=== PATIENT | female | born 1930 | race Caucasian/White ===

== ENCOUNTER → 2017-02-08 | Outpatient (CLI) | payer MEDICARE, OTHER ==
[2017-02-08 10:01] LABS: CHLORIDE,CL 106 mmol/L (98-110); SODIUM,NA 140 mmol/L (136-146)
== END ==
LOC: MW.CHIM 09:20
PROVIDERS: ATTEND Internal Medicine
DX: D64.9 Anemia, unspecified (principal); I10 Essential (primary) hypertension
CPT/HCPCS: 36415; 80053; 80061; 83540; 84439; 84443; 85025

== ENCOUNTER → 2017-02-14 | Outpatient (CLI) | payer MEDICARE, OTHER | LOC: MW.CHIM 08:00 | PROVIDERS: ATTEND Internal Medicine | DX: I10 Essential (primary) hypertension (principal); M19.049 Primary osteoarthritis, unspecified hand; I83.93 Asymptomatic varicose veins of bilateral lower extremities; I87.2 Venous insufficiency (chronic) (peripheral) | CPT/HCPCS: 99214 ==

== ENCOUNTER 2018-06-22 16:09 | Observation (INO) | payer MEDICARE, OTHER ==
--- NOTE | 2018-06-22 16:17 | EDM.PDOC ---
ED HPI GENERAL MEDICAL PROBLEM - General Chief Complaint: Lower Extremity Injury/Pain Stated Complaint: PT RT SIDE NUMB Time Seen by Provider: 06/22/18 16:13 - History of Present Illness INITIAL COMMENTS - FREE TEXT/NARRATIVE: HISTORY AND PHYSICAL: History of present illness: Patient is 88-year-old white female who presents with a concern of numbness and weakness to her right lower extremity this is primarily relegated to her foot and started approximately one half hour prior to arrival she denies any other numbness weakness or other concern she denies chest pain shortness of breath fever chills nausea or vomiting. Review of systems: As per history of present illness and below otherwise all systems reviewed and negative. Past medical history: As per history of present illness and as reviewed below otherwise noncontributory. Surgical history: As per history of present illness and as reviewed below otherwise noncontributory. Social history: No reported history of drug or alcohol abuse. Family history: As per history of present illness and as reviewed below otherwise noncontributory. Physical exam: HEENT: Atraumatic, normocephalic, pupils reactive, negative for conjunctival pallor or scleral icterus, mucous membranes moist, throat clear, neck supple, nontender, trachea midline. Lungs: Clear to auscultation, breath sounds equal bilaterally, chest nontender. Heart: S1S2, regular, negative for clicks, rubs, or JVD. Abdomen: Soft, nondistended, nontender. Negative for masses or hepatosplenomegaly. Negative for costovertebral tenderness. Pelvis: Stable nontender. Genitourinary: Deferred. Rectal: Deferred. Extremities: Atraumatic, negative for cords or calf pain. Neurovascular unremarkable. Edema noted left lower extremity Neuro: Awake, alert, oriented. Cranial nerves II through XII unremarkable. Cerebellum unremarkable. Motor and sensory unremarkable throughout. Exam nonfocal. Diagnostics: CBC CMP troponin PT/INR chest x-ray EKG CT brain Therapeutics: IV O2 monitor Impression: #1 paresis/paresthesia right lower extremity improved Definitive disposition and diagnosis as appropriate pending reevaluation and review of above. - Related Data Allergies Allergy/AdvReac Type Severity Reaction Status Date / Time brimonidine tartrate Allergy Cannot Verified 06/22/18 16:54 [From Alphagan P] Remember ciprofloxacin Allergy Cannot Verified 06/22/18 16:56 Remember Home Meds: Home Meds Aspirin [Children's Aspirin] 81 mg PO DAILY 02/04/15 [History] Doxazosin [Cardura] 2 mg PO DAILY 02/04/15 [History] HCTZ/Triamterene [Maxzide 25-37.5 MG] 37.5 mg PO DAILY 02/04/15 [History] Latanoprost [Xalatan] 2.5 ml EYEBOTH DAILY 02/04/15 [History] Vit A/Vit C/Vit E/Zinc/Copper [Preservision] 2 each PO DAILY 02/04/15 [History] Review of Systems - Review of Systems Review Of Systems: ROS reveals no pertinent complaints other than HPI. ED EXAM, GENERAL - Physical Exam Exam: See Below (See dictation) Course - Vital Signs Last Recorded V/S: Last Vital Signs Temp 36.2 C 06/22/18 16:10 Pulse 78 06/22/18 16:10 Resp 16 06/22/18 16:10 BP 113/80 06/22/18 16:10 Pulse Ox 97 06/22/18 16:10 - Orders/Labs/Meds Orders: Active Orders 24 hr Category Date Time Status EKG 12 Lead [EKG Documentation Completion] [RC] STAT Care 06/22/18 16:18 Active Chest 1V Frontal [CR] Stat Exams 06/22/18 16:17 Taken Head wo Cont [CT] Stat Exams 06/22/18 16:17 Taken URINALYSIS W/MICROSCOPIC [UA W/MICROSCOPIC] [URIN] Stat Lab 06/22/18 16:17 Ordered Labs: Laboratory Tests 06/22/18 06/22/18 Range/Units 17:00 17:00 WBC 8.18 (4.0-11.0) K/uL RBC 4.38 (4.30-5.90) M/uL Hgb 13.1 (12.0-16.0) g/dL Hct 38.9 (36.0-46.0) % MCV 88.8 (80.0-98.0) fL MCH 29.9 (27.0-32.0) pg MCHC 33.7 (31.0-37.0) g/dL RDW Std Deviation 42.4 (28.0-62.0) fl RDW Coeff of Anne 13 (11.0-15.0) % Plt Count 239 (150-400) K/uL MPV 9.20 (7.40-12.00) fL Neut % (Auto) 58.9 (48.0-80.0) % Lymph % (Auto) 29.0 (16.0-40.0) % [place] % (Auto) 9.9 (0.0-15.0) % Eos % (Auto) 2.0 (0.0-7.0) % Baso % (Auto) 0.2 (0.0-1.5) % Neut # (Auto) 4.8 (1.4-5.7) K/uL Lymph # (Auto) 2.4 (0.6-2.4) K/uL Bent # (Auto) 0.8 (0.0-0.8) K/uL Eos # (Auto) 0.2 (0.0-0.7) K/uL Baso # (Auto) 0.0 (0.0-0.1) K/uL Nucleated RBC % 0.0 /100WBC Nucleated RBCs # 0 K/uL Sodium 139 (136-145) mmol/L Potassium 3.6 (3.5-5.1) mmol/L Chloride 105 (98-107) mmol/L Carbon Dioxide 27.6 (21.0-32.0) mmol/L BUN 9 (7.0-18.0) mg/dL Creatinine 0.6 (0.6-1.0) mg/dL Est Cr Clr Drug Dosing 57.04 mL/min Estimated GFR (MDRD) > 60.0 ml/min Glucose 132 H (74-106) mg/dL Calcium 9.5 (8.5-10.1) mg/dL Total Bilirubin 1.1 H (0.2-1.0) mg/dL AST 13 L (15-37) IU/L ALT 14 (14-63) IU/L Alkaline Phosphatase 64 (46-116) U/L CK-MB (CK-2) 1.2 (0-3.6) ng/mL Troponin I < 0.050 (0.000-0.056) ng/mL Total Protein 7.2 (6.4-8.2) g/dL Albumin 3.4 (3.4-5.0) g/dL Globulin 3.8 H (2.0-3.5) g/dL Albumin/Globulin Ratio 0.9 L (1.3-2.8) Departure - Departure Time of Disposition: 17:49 Disposition: Refer to Observation Condition: Good Clinical Impression: Paresthesia, Paresis - Discharge Information Forms: ED Department Discharge - My Orders Last 24 Hours: My Active Orders 06/22/18 16:17 Chest 1V Frontal [CR] Stat Head wo Cont [CT] Stat URINALYSIS W/MICROSCOPIC [UA W/MICROSCOPIC] [URIN] Stat 06/22/18 16:18 EKG 12 Lead [EKG Documentation Completion] [RC] STAT - Assessment/Plan Last 24 Hours: My Active Orders 06/22/18 16:17 Chest 1V Frontal [CR] Stat Head wo Cont [CT] Stat URINALYSIS W/MICROSCOPIC [UA W/MICROSCOPIC] [URIN] Stat 06/22/18 16:18 EKG 12 Lead [EKG Documentation Completion] [RC] STAT
[2018-06-22 17:48] LABS: CHLORIDE,CL 105 mmol/L (98-107); SODIUM,NA 139 mmol/L (136-145)
[2018-06-22] MEDS ORDERED: Acetaminophen 325 MG Tab PO PRN (23:35)
--- NOTE | 2018-06-22 23:37 | PCM.HP ---
H&P History of Present Illness - General Date of Service: 06/23/18 Admit Problem/Dx: Admission Diagnosis/Problem Admission Diagnosis/Problem Paresthesia - History of Present Illness Initial Comments - Free Text/Narative: 88 yo female with pmh of hypertension who presents with right foot weakness and numbness. Patient reported leg felt wobble for a few hours. Her symptoms resolved on admission. She was seen in the ED three years ago with similar symptoms and was discharged home as it was felt like it was unlikely a stroke. Bilateral Leg Pain Score (Numeric/FACES): 2 - Related Data Allergies/Adverse Reactions: Allergies Allergy/AdvReac Type Severity Reaction Status Date / Time brimonidine tartrate Allergy Cannot Verified 06/22/18 16:54 [From Alphagan P] Remember ciprofloxacin Allergy Cannot Verified 06/22/18 16:56 Remember Home Medications: Home Meds Aspirin [Children's Aspirin] 81 mg PO DAILY 02/04/15 [History] Doxazosin [Cardura] 2 mg PO DAILY 02/04/15 [History] HCTZ/Triamterene [Maxzide 25-37.5 MG] 37.5 mg PO DAILY 02/04/15 [History] Latanoprost [Xalatan 0.005% Ophth Soln] 2.5 ml EYEBOTH DAILY 02/04/15 [History] Vit A/Vit C/Vit E/Zinc/Copper [Preservision] 2 each PO DAILY 02/04/15 [History] amLODIPine Besylate [Amlodipine Besylate] 5 mg PO BEDTIME 06/22/18 [History] Past Medical History HEENT History: Reports: Glaucoma, Macular Degeneration Cardiovascular History: Reports: Hypertension Dermatologic History: Reports: Benign Melanoma - Infectious Disease History Infectious Disease History: Reports: None - Past Surgical History GI Surgical History: Reports: Cholecystectomy Social & Family History - Family History Family Medical History: Noncontributory - Tobacco Use Smoking Status *Q: Never Smoker - Caffeine Use Caffeine Use: Reports: Coffee - Recreational Drug Use Recreational Drug Use: No H&P Review of Systems - Review of Systems: Review Of Systems: ROS reveals no pertinent complaints other than HPI. Exam - Exam Exam: See Below - Vital Signs Vital Signs: Last Vital Signs Temp 36.8 C 06/22/18 20:00 Pulse 83 06/22/18 20:00 Resp 18 06/22/18 20:00 BP 151/86 H 06/22/18 20:00 Pulse Ox 96 06/22/18 20:00 Weight: 65.856 kg - Exam General: Alert, Oriented HEENT: Mucosa Moist & Amonate Neck: Supple, Trachea Midline Lungs: Clear to Auscultation, Normal Respiratory Effort Cardiovascular: Regular Rate, Regular Rhythm GI/Abdominal Exam: Normal Bowel Sounds, Soft, Non-Tender Extremities: Non-Tender, No Pedal Edema Skin: Warm, Dry, Intact Neurological: Cranial Nerves Intact, Reflexes Equal Bilateral, Strength Equal Bilateral, Normal Gait, Normal Speech, Normal Tone, Sensation Intact. No: Focal Deficit Psychiatric: Alert, Normal Affect, Normal Mood - Patient Data Lab Results Last 24 hrs: Laboratory Results - last 24 hr 06/22/18 06/22/18 Range/Units 17:00 17:00 WBC 8.18 (4.0-11.0) K/uL RBC 4.38 (4.30-5.90) M/uL Hgb 13.1 (12.0-16.0) g/dL Hct 38.9 (36.0-46.0) % MCV 88.8 (80.0-98.0) fL MCH 29.9 (27.0-32.0) pg MCHC 33.7 (31.0-37.0) g/dL RDW Std Deviation 42.4 (28.0-62.0) fl RDW Coeff of Anne 13 (11.0-15.0) % Plt Count 239 (150-400) K/uL MPV 9.20 (7.40-12.00) fL Neut % (Auto) 58.9 (48.0-80.0) % Lymph % (Auto) 29.0 (16.0-40.0) % [place] % (Auto) 9.9 (0.0-15.0) % Eos % (Auto) 2.0 (0.0-7.0) % Baso % (Auto) 0.2 (0.0-1.5) % Neut # (Auto) 4.8 (1.4-5.7) K/uL Lymph # (Auto) 2.4 (0.6-2.4) K/uL [place] # (Auto) 0.8 (0.0-0.8) K/uL Eos # (Auto) 0.2 (0.0-0.7) K/uL Baso # (Auto) 0.0 (0.0-0.1) K/uL Nucleated RBC % 0.0 /100WBC Nucleated RBCs # 0 K/uL Sodium 139 (136-145) mmol/L Potassium 3.6 (3.5-5.1) mmol/L Chloride 105 (98-107) mmol/L Carbon Dioxide 27.6 (21.0-32.0) mmol/L BUN 9 (7.0-18.0) mg/dL Creatinine 0.6 (0.6-1.0) mg/dL Est Cr Clr Drug Dosing 57.04 mL/min Estimated GFR (MDRD) > 60.0 ml/min Glucose 132 H (74-106) mg/dL Calcium 9.5 (8.5-10.1) mg/dL Total Bilirubin 1.1 H (0.2-1.0) mg/dL AST 13 L (15-37) IU/L ALT 14 (14-63) IU/L Alkaline Phosphatase 64 (46-116) U/L CK-MB (CK-2) 1.2 (0-3.6) ng/mL Troponin I < 0.050 (0.000-0.056) ng/mL Total Protein 7.2 (6.4-8.2) g/dL Albumin 3.4 (3.4-5.0) g/dL Globulin 3.8 H (2.0-3.5) g/dL Albumin/Globulin Ratio 0.9 L (1.3-2.8) Result Diagrams: 06/22/18 17:00 06/22/18 17:00 Problem List Initiated/Reviewed/Updated: Yes Orders Last 24hrs: Active Orders 24 hr Category Date Time Status Patient Status [ADT] Stat ADT 06/22/18 17:51 Active Oxygen Therapy [RC] PRN Care 06/22/18 23:36 Active Telemetry Monitoring [Cardiac Monitoring] [RC] Q8H Care 06/22/18 18:25 Active Up ad Kylie [RC] ASDIRECTED Care 06/22/18 23:35 Active VTE/DVT Education [RC] PER UNIT ROUTINE Care 06/22/18 23:36 Active Vital Signs [RC] Q4H Care 06/22/18 23:36 Active Regular Diet [DIET] Diet 06/22/18 Dinner Active Chest 1V Frontal [CR] Stat Exams 06/22/18 16:17 Taken Head wo Cont [CT] Stat Exams 06/22/18 16:17 Taken CULTURE URINE [RM] Stat Lab 06/22/18 18:10 Ordered URINALYSIS W/MICROSCOPIC [UA W/MICROSCOPIC] [URIN] Stat Lab 06/22/18 16:17 Ordered Acetaminophen [Tylenol] Med 06/22/18 23:35 Ordered 650 mg PO Q4H PRN Sequential Compression Device [OM.PC] Per Unit Routine Oth 06/22/18 23:36 Ordered Resuscitation Status Routine Resus Stat 06/22/18 23:35 Ordered Medication Orders Acetaminophen (Tylenol) 650 mg PO Q4H PRN PRN Reason: Pain (Mild 1-3)/fever Assessment/Plan Comment:: 88 yo female admitted with paresthesias. She was monitored overnight with no events on telemetry. CT head showed no acute findings. I recommended MRI of brain but patient has refused. She will be discharged home with grand daughter. A referral to neurology clinic was made.
[2018-06-23 12:13] VITALS: BP 140/72
--- NOTE | 2018-06-24 11:31 | CT ---
EXAM DATE: 06/22/18 PATIENT'S AGE: 88 Patient: BUSHRA TREVIÑO Facility: [place], [place] Site . Site : 1930 Study: CT Head STROKE PROTOCOL wo cont [id number] 4:29:23 PM Ordering Physician: Himanshu Thomson Final Report: INDICATION: Stroke code. Right lower leg numbness with new onset. TECHNIQUE: CT head without IV contrast. COMPARISON: CT head 02/04/2015. FINDINGS: Moderate degenerative changes in the cervical spine on lateral circulating nurse view. No intracranial hemorrhage, edema or mass effect. Moderate vascular calcifications. Mild to moderate cerebral atrophy with slight progression since 2014. Minimal small vessel ischemic disease. Remainder negative. Report called to referring physician at 4:33 p.m. on 06/22/2018. IMPRESSION: No acute intracranial disease. Chronic intracranial findings as described above. Please note that all CT scans at this facility use dose modulation, iterative reconstruction, and/or weight-based dosing when appropriate to reduce radiation dose to as low as reasonably achievable. Dictated by Wade Mckeon MD @ Jun 22 2018 4:34PM (Electronic Signature) Report Signed by Proxy. SEE
--- NOTE | 2018-06-24 11:32 | CR ---
EXAM DATE: 06/22/18 PATIENT'S AGE: 88 Patient: BUSHRA TREVIÑO Facility: [place], [place] Site . Site : 1930 Study: XRay Chest [id number] 4:31:02 PM Ordering Physician: Himanshu Thomson Final Report: TECHNIQUE: Portable AP chest. INDICATION: Stroke, right lower leg numbness. FINDINGS: Lungs clear. Normal heart size and pulmonary vascularity given technique. No effusion. No pneumothorax. Bilateral shoulder arthroplasties. No significant change since 06/03/2018. IMPRESSION: No acute chest findings. Dictated by Liang Talley MD @ 06/22/2018 4:58:06 PM Dictated by: Liang Talley MD @ 06/22/2018 16:58:20 (Electronic Signature) Report Signed by Proxy. [facility]
== END 2018-06-23 11:10 | disposition home or self-care (01) ==
LOC: MW.ED 16:09 → MW.MS 18:20
PROVIDERS: ADMIT Internal Medicine; ATTEND Internal Medicine
DX: R20.2 Paresthesia of skin (principal); I10 Essential (primary) hypertension; Z79.82 Long term (current) use of aspirin; Z79.899 Other long term (current) drug therapy; Z88.1 Allergy status to other antibiotic agents; Z88.8 Allergy status to other drugs, medicaments and biological substances
CPT/HCPCS: 70450; 70450-26; 71045; 71045-26; 80053; 82553; 84484; 85025; 93005; 99285-25; G0378

== ENCOUNTER 2018-10-26 20:12 | Inpatient (IN) | payer MEDICARE, OTHER ==
[2018-10-26] MEDS ORDERED: Sodium Chloride 0.9% 500 ML IV SCH (20:30)
--- NOTE | 2018-10-26 20:53 | EDM.PDOC ---
ED HPI GENERAL MEDICAL PROBLEM - General Chief Complaint: Lower Extremity Injury/Pain Stated Complaint: PT HAS CONFUSION Time Seen by Provider: 10/26/18 20:50 Source of Information: Reports: Patient - History of Present Illness INITIAL COMMENTS - FREE TEXT/NARRATIVE: HISTORY AND PHYSICAL: History of present illness: Patient presents with weakness and confusion noted over the last few days, her daughter has not seen her in approximately 6 weeks at which time she was doing quite well, her daughter arrived from town noted her mother was week helping her around her assisted living home fall complains of left ankle pain with ambulation but is ambulating with assistance. daughter notes that mom is somewhat confused as of late She is alert and answers questions appropriately at this time no fever nausea vomiting chills sweats no chest pain shortness breath headache dizziness palpitation no bowel or urine symptoms no head injury or loss of consciousness associated with fall 5 days polina .or. History of recent DVT on 0 to Review of systems: As per history of present illness and below otherwise all systems reviewed and negative. Past medical history: As per history of present illness and as reviewed below otherwise noncontributory. Surgical history: As per history of present illness and as reviewed below otherwise noncontributory. Social history: No reported history of drug or alcohol abuse. Family history: As per history of present illness and as reviewed below otherwise noncontributory. Physical exam: HEENT: Atraumatic, normocephalic, pupils reactive, conjunctival pallor noted no scleral icterus, mucous membranes moist, throat clear, neck supple, nontender, trachea midline. Lungs: Clear to auscultation, breath sounds equal bilaterally, chest nontender. Heart: S1S2, regular, negative for clicks, rubs, or JVD. Abdomen: Soft, nondistended, nontender. Negative for masses or hepatosplenomegaly. Negative for costovertebral tenderness. Pelvis: Stable nontender. Genitourinary: Deferred. Rectal: Deferred. Extremities: Atraumatic, negative for cords or calf pain. Neurovascular unremarkable. Neuro: Awake, alert, oriented. Cranial nerves II through XII unremarkable. Cerebellum unremarkable. Motor and sensory unremarkable throughout. Exam nonfocal. Diagnostics: [] CBC CMP UA troponin CPK type and screen and crossmatch 2 units EKG Chest [address] no contrast Left ankle complete Therapeutics: [] normal saline 500 mL bolus packed red blood cells 2 units Impression: [] symptomatically anemia hyperglycemia-onset diabetes generalized weakness and confusion likely secondary to above Chronic history of baseline Definitive disposition and diagnosis as appropriate pending reevaluation and review of above. Left Lower Leg Pain Score (Numeric/FACES): 2 - Related Data Allergies Allergy/AdvReac Type Severity Reaction Status Date / Time brimonidine tartrate Allergy Cannot Verified 10/26/18 20:19 [From Alphagan P] Remember ciprofloxacin Allergy Cannot Verified 10/26/18 20:19 Remember Home Meds: Home Meds HCTZ/Triamterene [Maxzide 25-37.5 MG] 0.5 tab PO ASDIRECTED 02/04/15 [History] Latanoprost [Xalatan 0.005% Ophth Soln] 1 drop EYEBOTH DAILY 02/04/15 [History] Triamcinolone Acetonide [Triamcinolone Acetonide 0.025%] 1 applic TOP BID PRN [History] Rivaroxaban [Xarelto] 20 mg PO DAILY 08/14/18 [History] Potassium Chloride 10 meq PO BID #30 capsule.er 09/03/18 [Rx] Nitrofurantoin Monohyd/M-Cryst [Macrobid 100 mg Capsule] 100 mg PO BID 10 Days # 20 capsule 09/14/18 [Rx] Potassium Chloride [Klor-Con 10] 10 meq PO BID #30 tablet.er 09/14/18 [Rx] amLODIPine Besylate [Amlodipine Besylate] 5 mg PO DAILY 09/14/18 [History] Past Medical History HEENT History: Reports: Glaucoma, Macular Degeneration Cardiovascular History: Reports: Blood Clots/VTE/DVT, Hypertension Gastrointestinal History: Reports: None Genitourinary History: Reports: None DATA MIGRATION LEAD History: Reports: Musculoskeletal History: Reports: None Psychiatric History: Reports: Anxiety Hematologic History: Reports: Other (See Below) Other Hematologic History: DVT Dermatologic History: Reports: Benign Melanoma - Infectious Disease History Infectious Disease History: Reports: Chicken Pox - Past Surgical History GI Surgical History: Reports: Cholecystectomy Female Surgical History: Reports: Hysterectomy Musculoskeletal Surgical History: Reports: Other (See Below) Other Musculoskeletal Surgeries/Procedures:: bilateral shoulder Social & Family History - Family History Family Medical History: Noncontributory - Tobacco Use Smoking Status *Q: Never Smoker - Caffeine Use Caffeine Use: Reports: Coffee - Recreational Drug Use Recreational Drug Use: No Review of Systems - Review of Systems Review Of Systems: See Below ED EXAM, GENERAL - Physical Exam Exam: See Below Course - Vital Signs Last Recorded V/S: Last Vital Signs Temp 98.6 F 10/26/18 20:15 Pulse 94 10/26/18 21:05 Resp 18 10/26/18 21:05 BP 119/52 L 10/26/18 21:05 Pulse Ox 94 L 10/26/18 21:05 - Orders/Labs/Meds Orders: Active Orders 24 hr Category Date Time Status EKG Documentation Completion [RC] STAT Care 10/26/18 20:15 Active Ankle Min 3V Lt [CR] Stat Exams 10/26/18 20:28 Taken Chest 1V Frontal [CR] Stat Exams 10/26/18 20:15 Taken Head wo Cont [CT] Stat Exams 10/26/18 20:15 Taken PACKED CELLS [RED BLOOD CELLS LP] [BBK] Stat Lab 10/26/18 20:24 Received TYPE AND SCREEN [BBK] Stat Lab 10/26/18 20:24 Received UA RFX DIAN AND CULT IF INDIC [URIN] Stat Lab 10/26/18 20:15 Ordered Sodium Chloride 0.9% [Normal Saline] 500 ml Med 10/26/18 20:30 Active IV STAT Medication Orders Sodium Chloride (Normal Saline) 500 mls @ 999 mls/hr IV STAT CORA Last Admin: 10/26/18 21:02 Dose: 999 mls/hr Labs: Laboratory Tests 10/26/18 10/26/18 10/26/18 Range/Units 20:24 20:24 20:24 WBC 14.25 H (4.0-11.0) K/uL RBC 2.91 L (4.30-5.90) M/uL Hgb 7.3 L (12.0-16.0) g/dL Hct 23.6 L (36.0-46.0) % MCV 81.1 (80.0-98.0) fL MCH 25.1 L (27.0-32.0) pg MCHC 30.9 L (31.0-37.0) g/dL RDW Std Deviation 47.5 (28.0-62.0) fl RDW Coeff of Anne 16 H (11.0-15.0) % Plt Count 208 (150-400) K/uL MPV 8.70 (7.40-12.00) fL Add Manual Diff YES Neutrophils % (Manual) 81 H (48.0-80.0) % Band Neutrophils % 3 % Lymphocytes % (Manual) 9 L (16.0-40.0) % Monocytes % (Manual) 5 (0.0-15.0) % Eosinophils % (Manual) 1 (0.0-7.0) % Basophils % (Manual) 1 (0.0-1.5) % Nucleated RBC % 0.0 /100WBC Absolute Seg Neuts 11.5 H (1.4-5.7) Band Neutrophils # 0.4 Lymphocytes # (Manual) 1.3 (0.6-2.4) Monocytes # (Manual) 0.7 (0.0-0.8) Eosinophils # (Manual) 0.1 (0.0-0.7) Basophils # (Manual) 0.1 (0.0-0.1) Nucleated RBCs # 0 K/uL INR 1.60 Sodium 130 L (136-145) mmol/L Potassium 3.9 (3.5-5.1) mmol/L Chloride 97 L (98-107) mmol/L Carbon Dioxide 24.0 (21.0-32.0) mmol/L BUN 16 (7.0-18.0) mg/dL Creatinine 0.7 (0.6-1.0) mg/dL Est Cr Clr Drug Dosing TNP Estimated GFR (MDRD) > 60.0 ml/min Glucose 351 H (74-106) mg/dL Calcium 8.3 L (8.5-10.1) mg/dL Total Bilirubin 0.9 (0.2-1.0) mg/dL AST 31 (15-37) IU/L ALT 31 (14-63) IU/L Alkaline Phosphatase 84 (46-116) U/L Troponin I < 0.050 (0.000-0.056) ng/mL Total Protein 6.0 L (6.4-8.2) g/dL Albumin 1.8 L (3.4-5.0) g/dL Globulin 4.2 H (2.6-4.0) g/dL Albumin/Globulin Ratio 0.4 L (0.9-1.6) Meds: Medications Generic Name Dose Route Start Last Admin Trade Name Kathi PRN Reason Stop Dose Admin Sodium Chloride 500 mls @ 999 mls/hr 10/26/18 20:30 10/26/18 21:02 Normal Saline IV 999 mls/hr STAT CORA Administration Departure - Departure Time of Disposition: 21:21 Disposition: Refer to Observation Condition: Poor Clinical Impression: Symptomatic anemia, New onset type 2 diabetes mellitus, Hyperglycemia - Discharge Information Referrals: PCP,None [Primary Care Provider] - Forms: ED Department Discharge - My Orders Last 24 Hours: My Active Orders 10/26/18 20:15 EKG Documentation Completion [RC] STAT Chest 1V Frontal [CR] Stat Head wo Cont [CT] Stat UA RFX DIAN AND CULT IF INDIC [URIN] Stat 10/26/18 20:24 PACKED CELLS [RED BLOOD CELLS LP] [BBK] Stat TYPE AND SCREEN [BBK] Stat 10/26/18 20:28 Ankle Min 3V Lt [CR] Stat 10/26/18 20:30 Sodium Chloride 0.9% [Normal Saline] 500 ml IV STAT - Assessment/Plan Last 24 Hours: My Active Orders 10/26/18 20:15 EKG Documentation Completion [RC] STAT Chest 1V Frontal [CR] Stat Head wo Cont [CT] Stat UA RFX DIAN AND CULT IF INDIC [URIN] Stat 10/26/18 20:24 PACKED CELLS [RED BLOOD CELLS LP] [BBK] Stat TYPE AND SCREEN [BBK] Stat 10/26/18 20:28 Ankle Min 3V Lt [CR] Stat 10/26/18 20:30 Sodium Chloride 0.9% [Normal Saline] 500 ml IV STAT
[2018-10-26 20:57] LABS: CHLORIDE,CL 97 mmol/L (98-107); SODIUM,NA 130 mmol/L (136-145)
[2018-10-26] MEDS: Acetaminophen 325 MG Tab PO PRN (23:00)
[2018-10-26] MEDS: Temazepam 15 MG Cap PO PRN (23:00)
[2018-10-27 06:37] LABS: CHLORIDE,CL 102 mmol/L (98-107); SODIUM,NA 135 mmol/L (136-145)
--- NOTE | 2018-10-27 07:46 | PCM.HP ---
H&P History of Present Illness - General Date of Service: 10/27/18 Admit Problem/Dx: Admission Diagnosis/Problem Admission Diagnosis/Problem Anemia Source of Information: Patient, Family History Limitations: Reports: No Limitations - History of Present Illness Initial Comments - Free Text/Narative: The patient is an 88-year-old lady who had been admitted secondary to increasing confusion, falls and generalized weakness. The patient's daughter is with her. The patient's daughter says that the patient is scheduled to go to an assisted living center later this week. The patient says that she has been coming increasingly weak and fatigued and she has severe pain in her left foot and calf. The patient was recently started on Xarelto for blood clots in her left lower extremity. Patient has denied any trauma. The patient has denied any fever or chills. She's had no shortness of breath. She has been living at home and has been unable to meet her activities of daily living. Onset of Symptoms: Reports: Gradual Duration of Symptoms: Reports: Day(s):, Getting Worse Location: Reports: Generalized Improves with: Reports: Rest Worsens with: Reports: Movement Associated Symptoms: Reports: No Other Symptoms Left Lower Leg Pain Score (Numeric/FACES): 2 - Related Data Allergies/Adverse Reactions: Allergies Allergy/AdvReac Type Severity Reaction Status Date / Time brimonidine tartrate Allergy Cannot Verified 10/26/18 20:19 [From Alphagan P] Remember ciprofloxacin Allergy Cannot Verified 10/26/18 20:19 Remember Home Medications: Home Meds Latanoprost [Xalatan 0.005% Ophth Soln] 1 drop EYEBOTH BEDTIME 02/04/15 [History ] Rivaroxaban [Xarelto] 20 mg PO DAILY 08/14/18 [History] amLODIPine Besylate [Amlodipine Besylate] 5 mg PO BEDTIME 09/14/18 [History] Dorzolamide HCl 1 drop EYELF DAILY 10/26/18 [History] Doxazosin Mesylate [Cardura] 1 mg PO DAILY 10/26/18 [History] Potassium Chloride [Klor-Con 10] 10 meq PO DAILY 10/26/18 [History] Spironolactone [Aldactone] 25 mg PO DAILY 10/26/18 [History] Past Medical History HEENT History: Reports: Glaucoma, Macular Degeneration Cardiovascular History: Reports: Blood Clots/VTE/DVT, Hypertension Respiratory History: Reports: None Gastrointestinal History: Reports: None Genitourinary History: Reports: None SERVICE PLANNER History: Reports: Musculoskeletal History: Reports: None Neurological History: Reports: None Psychiatric History: Reports: Anxiety Endocrine/Metabolic History: Reports: None Hematologic History: Reports: Other (See Below) Other Hematologic History: DVT Immunologic History: Reports: None Oncologic (Cancer) History: Reports: None Dermatologic History: Reports: Benign Melanoma - Infectious Disease History Infectious Disease History: Reports: Chicken Pox - Past Surgical History GI Surgical History: Reports: Cholecystectomy Female Surgical History: Reports: Hysterectomy Musculoskeletal Surgical History: Reports: Other (See Below) Other Musculoskeletal Surgeries/Procedures:: bilateral shoulder Social & Family History - Family History Family Medical History: Noncontributory - Tobacco Use Smoking Status *Q: Never Smoker Second Hand Smoke Exposure: No - Caffeine Use Caffeine Use: Reports: Coffee - Recreational Drug Use Recreational Drug Use: No - Living Situation & Occupation Living situation: Reports: , with Family Occupation: Retired H&P Review of Systems - Review of Systems: Review Of Systems: See Below General: Reports: Weakness, Fatigue HEENT: Reports: No Symptoms Pulmonary: Reports: Shortness of Breath Cardiovascular: Reports: No Symptoms Gastrointestinal: Reports: No Symptoms Genitourinary: Reports: No Symptoms Musculoskeletal: Reports: Back Pain, Leg Pain, Foot Pain Skin: Reports: No Symptoms Psychiatric: Reports: No Symptoms Neurological: Reports: No Symptoms Hematologic/Lymphatic: Reports: Anemia Immunologic: Reports: No Symptoms Exam - Exam Exam: See Below - Vital Signs Vital Signs: Last Vital Signs Temp 36.3 C 10/27/18 03:47 Pulse 86 10/27/18 03:47 Resp 14 10/27/18 03:47 BP 121/59 L 10/27/18 03:47 Pulse Ox 90 L 10/27/18 00:23 Weight: 59.285 kg - Exam Quality Assessment: No: Supplemental Oxygen General: Alert (Frail, elderly female), Oriented, Cooperative HEENT: Conjunctiva Clear, EACs Clear, EOMI, PERRLA. No: Mucosa Moist & [place] ( dry. eating) Neck: Supple, Trachea Midline Lungs: Normal Respiratory Effort, Crackles Cardiovascular: Regular Rate, Regular Rhythm GI/Abdominal Exam: Normal Bowel Sounds, Soft, Non-Tender, No Distention (Female) Exam: Deferred Rectal (Female) Exam: Deferred Back Exam: No: Normal Inspection (Kyphosis), Full Range of Motion (Age-related restrictions) Extremities: Pedal Edema (Predominantly left side), Leg Pain (Left leg examined. No ulcer. No redness. No swelling.) Skin: Warm, Dry, Intact Neurological: Cranial Nerves Intact Neuro Extensive - Mental Status: Alert, Oriented x3 Psychiatric: Alert, Normal Affect, Normal Mood - Patient Data Lab Results Last 24 hrs: Laboratory Results - last 24 hr 10/26/18 10/26/18 10/26/18 Range/Units 20:24 20:24 20:24 WBC 14.25 H (4.0-11.0) K/uL RBC 2.91 L (4.30-5.90) M/uL Hgb 7.3 L (12.0-16.0) g/dL Hct 23.6 L (36.0-46.0) % MCV 81.1 (80.0-98.0) fL MCH 25.1 L (27.0-32.0) pg MCHC 30.9 L (31.0-37.0) g/dL RDW Std Deviation 47.5 (28.0-62.0) fl RDW Coeff of Anne 16 H (11.0-15.0) % Plt Count 208 (150-400) K/uL MPV 8.70 (7.40-12.00) fL Add Manual Diff YES Neutrophils % (Manual) 81 H (48.0-80.0) % Band Neutrophils % 3 % Lymphocytes % (Manual) 9 L (16.0-40.0) % Monocytes % (Manual) 5 (0.0-15.0) % Eosinophils % (Manual) 1 (0.0-7.0) % Basophils % (Manual) 1 (0.0-1.5) % Nucleated RBC % 0.0 /100WBC Absolute Seg Neuts 11.5 H (1.4-5.7) Band Neutrophils # 0.4 Lymphocytes # (Manual) 1.3 (0.6-2.4) Monocytes # (Manual) 0.7 (0.0-0.8) Eosinophils # (Manual) 0.1 (0.0-0.7) Basophils # (Manual) 0.1 (0.0-0.1) Nucleated RBCs # 0 K/uL INR 1.60 Sodium 130 L (136-145) mmol/L Potassium 3.9 (3.5-5.1) mmol/L Chloride 97 L (98-107) mmol/L Carbon Dioxide 24.0 (21.0-32.0) mmol/L BUN 16 (7.0-18.0) mg/dL Creatinine 0.7 (0.6-1.0) mg/dL Est Cr Clr Drug Dosing TNP Estimated GFR (MDRD) > 60.0 ml/min Glucose 351 H (74-106) mg/dL Calcium 8.3 L (8.5-10.1) mg/dL Phosphorus (2.6-4.7) mg/dL Magnesium (1.8-2.4) mg/dL Total Bilirubin 0.9 (0.2-1.0) mg/dL AST 31 (15-37) IU/L ALT 31 (14-63) IU/L Alkaline Phosphatase 84 (46-116) U/L Troponin I < 0.050 (0.000-0.056) ng/mL Total Protein 6.0 L (6.4-8.2) g/dL Albumin 1.8 L (3.4-5.0) g/dL Globulin 4.2 H (2.6-4.0) g/dL Albumin/Globulin Ratio 0.4 L (0.9-1.6) Urine Color Urine Appearance Urine pH (5.0-8.0) Ur Specific [place] (1.001-1.035) Urine Protein (NEGATIVE) mg/dL Urine Glucose (UA) (NEGATIVE) mg/dL Urine Ketones (NEGATIVE) mg/dL Urine Occult Blood (NEGATIVE) Urine Nitrite (NEGATIVE) Urine Bilirubin (NEGATIVE) Urine Urobilinogen (<2.0) EU/dL Ur Leukocyte Esterase (NEGATIVE) Urine RBC (0-2/HPF) Urine WBC (0-5/HPF) Ur Epithelial Cells (NONE-FEW) Urine Bacteria (NEGATIVE) Blood Type Antibody Screen Crossmatch 10/26/18 10/26/18 10/27/18 Range/Units 20:24 21:20 05:54 WBC 13.33 H (4.0-11.0) K/uL RBC 3.52 L (4.30-5.90) M/uL Hgb 9.3 L (12.0-16.0) g/dL Hct 28.7 L (36.0-46.0) % MCV 81.5 (80.0-98.0) fL MCH 26.4 L (27.0-32.0) pg MCHC 32.4 (31.0-37.0) g/dL RDW Std Deviation 45.7 (28.0-62.0) fl RDW Coeff of Anne 16 H (11.0-15.0) % Plt Count 219 (150-400) K/uL MPV 8.60 (7.40-12.00) fL Add Manual Diff YES Neutrophils % (Manual) 78 (48.0-80.0) % Band Neutrophils % % Lymphocytes % (Manual) 16 (16.0-40.0) % Monocytes % (Manual) 5 (0.0-15.0) % Eosinophils % (Manual) 1 (0.0-7.0) % Basophils % (Manual) (0.0-1.5) % Nucleated RBC % 0.0 /100WBC Absolute Seg Neuts 10.4 H (1.4-5.7) Band Neutrophils # Lymphocytes # (Manual) 2.1 (0.6-2.4) Monocytes # (Manual) 0.7 (0.0-0.8) Eosinophils # (Manual) 0.1 (0.0-0.7) Basophils # (Manual) (0.0-0.1) Nucleated RBCs # 0 K/uL INR Sodium (136-145) mmol/L Potassium (3.5-5.1) mmol/L Chloride (98-107) mmol/L Carbon Dioxide (21.0-32.0) mmol/L BUN (7.0-18.0) mg/dL Creatinine (0.6-1.0) mg/dL Est Cr Clr Drug Dosing Estimated GFR (MDRD) ml/min Glucose (74-106) mg/dL Calcium (8.5-10.1) mg/dL Phosphorus (2.6-4.7) mg/dL Magnesium (1.8-2.4) mg/dL Total Bilirubin (0.2-1.0) mg/dL AST (15-37) IU/L ALT (14-63) IU/L Alkaline Phosphatase (46-116) U/L Troponin I (0.000-0.056) ng/mL Total Protein (6.4-8.2) g/dL Albumin (3.4-5.0) g/dL Globulin (2.6-4.0) g/dL Albumin/Globulin Ratio (0.9-1.6) Urine Color YELLOW Urine Appearance SLT CLOUDY Urine pH 6.0 (5.0-8.0) Ur Specific [place] 1.020 (1.001-1.035) Urine Protein NEGATIVE (NEGATIVE) mg/dL Urine Glucose (UA) 250 H (NEGATIVE) mg/dL Urine Ketones NEGATIVE (NEGATIVE) mg/dL Urine Occult Blood MODERATE H (NEGATIVE) Urine Nitrite NEGATIVE (NEGATIVE) Urine Bilirubin NEGATIVE (NEGATIVE) Urine Urobilinogen 4.0 H (<2.0) EU/dL Ur Leukocyte Esterase SMALL H (NEGATIVE) Urine RBC 1-2 (0-2/HPF) Urine WBC 2-3 (0-5/HPF) Ur Epithelial Cells RARE (NONE-FEW) Urine Bacteria RARE (NEGATIVE) Blood Type A POSITIVE Antibody Screen NEGATIVE Crossmatch See Detail 10/27/18 Range/Units 05:54 WBC (4.0-11.0) K/uL RBC (4.30-5.90) M/uL Hgb (12.0-16.0) g/dL Hct (36.0-46.0) % MCV (80.0-98.0) fL MCH (27.0-32.0) pg MCHC (31.0-37.0) g/dL RDW Std Deviation (28.0-62.0) fl RDW Coeff of Anne (11.0-15.0) % Plt Count (150-400) K/uL MPV (7.40-12.00) fL Add Manual Diff Neutrophils % (Manual) (48.0-80.0) % Band Neutrophils % % Lymphocytes % (Manual) (16.0-40.0) % Monocytes % (Manual) (0.0-15.0) % Eosinophils % (Manual) (0.0-7.0) % Basophils % (Manual) (0.0-1.5) % Nucleated RBC % /100WBC Absolute Seg Neuts (1.4-5.7) Band Neutrophils # Lymphocytes # (Manual) (0.6-2.4) Monocytes # (Manual) (0.0-0.8) Eosinophils # (Manual) (0.0-0.7) Basophils # (Manual) (0.0-0.1) Nucleated RBCs # K/uL INR Sodium 135 L (136-145) mmol/L Potassium 3.9 (3.5-5.1) mmol/L Chloride 102 (98-107) mmol/L Carbon Dioxide 25.4 (21.0-32.0) mmol/L BUN 10 (7.0-18.0) mg/dL Creatinine 0.4 L (0.6-1.0) mg/dL Est Cr Clr Drug Dosing 89.16 Estimated GFR (MDRD) > 60.0 ml/min Glucose 196 H (74-106) mg/dL Calcium 8.4 L (8.5-10.1) mg/dL Phosphorus 2.8 (2.6-4.7) mg/dL Magnesium 1.8 (1.8-2.4) mg/dL Total Bilirubin (0.2-1.0) mg/dL AST (15-37) IU/L ALT (14-63) IU/L Alkaline Phosphatase (46-116) U/L Troponin I (0.000-0.056) ng/mL Total Protein (6.4-8.2) g/dL Albumin (3.4-5.0) g/dL Globulin (2.6-4.0) g/dL Albumin/Globulin Ratio (0.9-1.6) Urine Color Urine Appearance Urine pH (5.0-8.0) Ur Specific [place] (1.001-1.035) Urine Protein (NEGATIVE) mg/dL Urine Glucose (UA) (NEGATIVE) mg/dL Urine Ketones (NEGATIVE) mg/dL Urine Occult Blood (NEGATIVE) Urine Nitrite (NEGATIVE) Urine Bilirubin (NEGATIVE) Urine Urobilinogen (<2.0) EU/dL Ur Leukocyte Esterase (NEGATIVE) Urine RBC (0-2/HPF) Urine WBC (0-5/HPF) Ur Epithelial Cells (NONE-FEW) Urine Bacteria (NEGATIVE) Blood Type Antibody Screen Crossmatch Result Diagrams: 10/27/18 05:54 10/27/18 05:54 - Problem List (1) Physical deconditioning SNOMED Code(s): 32805786523384 ICD Code: R53.81 - OTHER MALAISE Status: Chronic Priority: High Current Visit: Yes (2) Hyperglycemia SNOMED Code(s): 50715246 ICD Code: R73.9 - HYPERGLYCEMIA, UNSPECIFIED Status: Chronic Priority: High Current Visit: Yes (3) New onset type 2 diabetes mellitus SNOMED Code(s): 09509136 ICD Code: E11.9 - TYPE 2 DIABETES MELLITUS WITHOUT COMPLICATIONS Status: Chronic Priority: High Current Visit: Yes (4) Symptomatic anemia SNOMED Code(s): 649682469 ICD Code: D64.9 - ANEMIA, UNSPECIFIED Status: Chronic Priority: High Current Visit: Yes (5) Fall SNOMED Code(s): 6778321, 322289981 ICD Code: W19.XXXA - UNSPECIFIED FALL, INITIAL ENCOUNTER Status: Acute Priority: High Current Visit: Yes Qualifiers: Encounter type: initial encounter Qualified Code(s): W19.XXXA - Unspecified fall, initial encounter Problem List Initiated/Reviewed/Updated: Yes Orders Last 24hrs: Active Orders 24 hr Category Date Time Status Admission Status [Patient Status] [ADT] Stat ADT 10/26/18 21:21 Active EKG Documentation Completion [RC] STAT Care 10/26/18 20:15 Active Verify Patient Consent Obtain [RC] ASDIRECTED Care 10/26/18 21:31 Active Heart Healthy Diet [DIET] Diet 10/27/18 Breakfast Active Ankle Min 3V Lt [CR] Stat Exams 10/26/18 20:28 Taken Chest 1V Frontal [CR] Stat Exams 10/26/18 20:15 Taken Head wo Cont [CT] Stat Exams 10/26/18 20:15 Taken CULTURE URINE [RM] Stat Lab 10/26/18 21:20 Received PACKED CELLS [RED BLOOD CELLS LP] [BBK] Stat Lab 10/26/18 20:24 Results TYPE AND SCREEN [BBK] Stat Lab 10/26/18 20:24 Results Acetaminophen [Tylenol] Med 10/26/18 22:46 Active 650 mg PO Q6H PRN Sodium Chloride 0.9% [Normal Saline] 500 ml Med 10/26/18 20:30 Active IV STAT Temazepam [Restoril] Med 10/26/18 22:48 Active 15 mg PO BEDTIME PRN oxyCODONE Med 10/26/18 22:48 Active 5 mg PO Q6H PRN Transfuse Red Blood Cells [COMM] Stat Oth 10/26/18 21:30 Ordered Medication Orders Acetaminophen (Tylenol) 650 mg PO Q6H PRN PRN Reason: Pain Last Admin: 10/26/18 23:00 Dose: 650 mg Sodium Chloride (Normal Saline) 500 mls @ 999 mls/hr IV STAT CORA Last Admin: 10/26/18 21:02 Dose: 999 mls/hr Oxycodone HCl (Oxycodone) 5 mg PO Q6H PRN PRN Reason: Pain Temazepam (Restoril) 15 mg PO BEDTIME PRN PRN Reason: Sleep Last Admin: 10/26/18 23:00 Dose: 15 mg Assessment/Plan Comment:: The patient is an 88-year-old lady who had presented primarily out of concern for falls, generalized fatigue and weakness. The patient is able to eat without difficulty. She is also pending placement at assisted living center. I have ordered PT OT to evaluate the patient for strengthening, ambulation and ADLs. The patient was also newly anemic and I believe this is secondary to her chronic illnesses. The patient also received 2 units packed red blood cells in the emergency department and her hemoglobin is currently 9.3 mg/dL. The patient will have her hemoglobin retested with laboratory testing in the morning and if she continues to drop hemoglobin consider transfusion. No evidence of bleeding as the patient has denied any melena and her stools have been normal. We'll continue the patient on her diet as tolerated for now. I've encouraged ambulation with assistance. The patient will be in a DO NOT INTUBATE/DO NOT RESUSCITATE category and her wishes will be honored. The patient will likely be appropriate for discharge in 1-2 days.
[2018-10-27] MEDS: Acetaminophen 325 MG Tab PO PRN ×3 (08:30→20:35)
[2018-10-27] MEDS: Spironolactone 25 MG Tab PO SCH (09:46)
[2018-10-27] MEDS: Potassium Chloride 10 MEQ Tab.ER PO SCH (09:46)
[2018-10-27] MEDS: Gabapentin 100 MG Cap PO SCH ×2 (09:46→20:37)
[2018-10-27] MEDS: Latanoprost 0.005% Ophth Soln 2.5 ML Bottle EYELF SCH (14:53)
[2018-10-27] MEDS: cefTRIAXone 1 GM in Sodium Chloride 0.9% 50 ML IV SCH (16:29)
[2018-10-27] MEDS: oxyCODONE 5 MG Tab PO PRN (16:42)
[2018-10-27] MEDS: Rivaroxaban 10 MG Tab PO SCH (18:03)
[2018-10-27] MEDS: Latanoprost 0.005% Ophth Soln 2.5 ML Bottle EYEBOTH SCH (20:31)
[2018-10-27] MEDS: amLODIPine 5 MG Tab PO SCH (20:37)
[2018-10-28] MEDS: Acetaminophen 325 MG Tab PO PRN ×3 (02:51→20:12)
[2018-10-28 07:28] LABS: CHLORIDE,CL 100 mmol/L (98-107); SODIUM,NA 134 mmol/L (136-145)
[2018-10-28] MEDS: oxyCODONE 5 MG Tab PO PRN ×2 (07:42→15:48)
[2018-10-28] MEDS: Gabapentin 100 MG Cap PO SCH ×2 (08:14→20:12)
[2018-10-28] MEDS: Spironolactone 25 MG Tab PO SCH (08:14)
[2018-10-28] MEDS: Potassium Chloride 10 MEQ Tab.ER PO SCH (08:14)
[2018-10-28] MEDS ORDERED: Sodium Chloride 0.9% 1,000 ML IV SCH (08:45)
--- NOTE | 2018-10-28 08:45 | PCM.PN ---
<Jagruti Farmer M - Last Filed: 10/28/18 09:24> - General Info Date of Service: 10/28/18 Admission Dx/Problem (Free Text): Admission Diagnosis/Problem Admission Diagnosis/Problem Anemia Subjective Update: Having pain to L leg today, about the same as usual. But she is moving more which increases the pain. No chest pain or SOB. Appetite is poor due to pain. Functional Status: Reports: Tolerating Diet, Ambulating, Urinating. Denies: Pain Controlled - Review of Systems General: Reports: Malaise. Denies: Fever, Weakness, Fatigue HEENT: Reports: No Symptoms. Denies: Headaches, Sore Throat, Visual Changes Pulmonary: Denies: Shortness of Breath, Cough, Sputum Cardiovascular: Reports: Edema (L leg). Denies: Chest Pain, Dyspnea on Exertion Gastrointestinal: Reports: Decreased Appetite (due to pain). Denies: Abdominal Pain, Nausea, Vomiting Musculoskeletal: Reports: Leg Pain (left, burning shooting pain from fot up entire leg) Skin: Reports: No Symptoms Neurological: Reports: No Symptoms Psychiatric: Reports: No Symptoms - Patient Data Vitals - Most Recent: Last Vital Signs Temp 97.5 F 10/28/18 07:36 Pulse 105 H 10/28/18 07:36 Resp 18 10/28/18 07:36 BP 135/50 L 10/28/18 07:36 Pulse Ox 93 L 10/28/18 07:36 Weight - Most Recent: 59.285 kg I&O - Last 24 Hours: Intake & Output 10/27/18 10/28/18 10/28/18 22:59 06:59 14:59 Intake Total 1130 720 Output Total 1600 400 Balance -470 320 Lab Results Last 24 Hours: Laboratory Results - last 24 hr 10/28/18 10/28/18 Range/Units 06:42 06:42 WBC 14.92 H (4.0-11.0) K/uL RBC 3.60 L (4.30-5.90) M/uL Hgb 9.3 L (12.0-16.0) g/dL Hct 29.3 L (36.0-46.0) % MCV 81.4 (80.0-98.0) fL MCH 25.8 L (27.0-32.0) pg MCHC 31.7 (31.0-37.0) g/dL RDW Std Deviation 47.0 (28.0-62.0) fl RDW Coeff of Anne 16 H (11.0-15.0) % Plt Count 202 (150-400) K/uL MPV 8.90 (7.40-12.00) fL Add Manual Diff YES Neutrophils % (Manual) 81 H (48.0-80.0) % Band Neutrophils % 1 % Lymphocytes % (Manual) 16 (16.0-40.0) % Monocytes % (Manual) 2 (0.0-15.0) % Nucleated RBC % 0.0 /100WBC Absolute Seg Neuts 12.1 H (1.4-5.7) Band Neutrophils # 0.1 Lymphocytes # (Manual) 2.4 (0.6-2.4) Monocytes # (Manual) 0.3 (0.0-0.8) Nucleated RBCs # 0 K/uL Sodium 134 L (136-145) mmol/L Potassium 3.7 (3.5-5.1) mmol/L Chloride 100 (98-107) mmol/L Carbon Dioxide 25.9 (21.0-32.0) mmol/L BUN 13 (7.0-18.0) mg/dL Creatinine 0.5 L (0.6-1.0) mg/dL Est Cr Clr Drug Dosing 71.33 mL/min Estimated GFR (MDRD) > 60.0 ml/min Glucose 198 H (74-106) mg/dL Calcium 8.4 L (8.5-10.1) mg/dL Magnesium 1.7 L (1.8-2.4) mg/dL Total Bilirubin 1.7 H (0.2-1.0) mg/dL AST 16 (15-37) IU/L ALT 21 (14-63) IU/L Alkaline Phosphatase 76 (46-116) U/L Total Protein 5.8 L (6.4-8.2) g/dL Albumin 1.7 L (3.4-5.0) g/dL Globulin 4.1 H (2.6-4.0) g/dL Albumin/Globulin Ratio 0.4 L (0.9-1.6) Med Orders - Current: Current Medications Acetaminophen (Tylenol) 650 mg PO Q6H PRN PRN Reason: Pain Last Admin: 10/28/18 02:51 Dose: 650 mg Amlodipine Besylate (Norvasc) 5 mg PO BEDTIME [facility] Last Admin: 10/27/18 20:37 Dose: 5 mg Gabapentin (Neurontin) 100 mg PO BID [facility] Last Admin: 10/28/18 08:14 Dose: 100 mg Sodium Chloride (Normal Saline) 500 mls @ 999 mls/hr IV STAT [facility] Last Admin: 10/26/18 21:02 Dose: 999 mls/hr Ceftriaxone Sodium 1 gm/ (Sodium Chloride) 50 mls @ 100 mls/hr IV Q24H [facility] Last Admin: 10/27/18 16:29 Dose: 100 mls/hr Oxycodone HCl (Oxycodone) 5 mg PO Q4H PRN PRN Reason: Pain Latanoprost 0.005% Ophth Soln 2.5 Ml Bottle 0 each EYELF DAILY [facility] Last Admin: 10/27/18 14:53 Dose: 1 each Latanoprost 0.005% Ophth Soln 2.5 Ml Bottle 0 each EYEBOTH BEDTIME [facility] Last Admin: 10/27/18 20:31 Dose: 1 each Potassium Chloride (Klor-Con 10) 10 meq PO DAILY [facility] Last Admin: 10/28/18 08:14 Dose: 10 meq Rivaroxaban (Xarelto) 20 mg PO DAILY@1730 [facility] Last Admin: 10/27/18 18:03 Dose: 20 mg Spironolactone (Aldactone) 25 mg PO DAILY [facility] Last Admin: 10/28/18 08:14 Dose: 25 mg Temazepam (Restoril) 15 mg PO BEDTIME PRN PRN Reason: Sleep Last Admin: 10/26/18 23:00 Dose: 15 mg Discontinued Medications Oxycodone HCl (Oxycodone) 5 mg PO Q6H PRN PRN Reason: Pain Last Admin: 10/28/18 07:42 Dose: 5 mg - Exam General: Alert, Oriented, Cooperative, Mild Distress (pain to L leg) Neck: Supple Lungs: Clear to Auscultation, Normal Respiratory Effort Cardiovascular: Regular Rate, Regular Rhythm GI/Abdominal Exam: Normal Bowel Sounds, Soft, Non-Tender Extremities: Normal Range of Motion, Leg Pain (L leg, warm, no erythema with noted edema. Dr Wong assessed, reports no change from yesterdays assessment. ) Neurological: No New Focal Deficit Psy/Mental Status: Alert, Normal Affect, Normal Mood - Problem List & Annotations (1) UTI (urinary tract infection) SNOMED Code(s): 56505927 Code(s): N39.0 - URINARY TRACT INFECTION, SITE NOT SPECIFIED Status: Acute Current Visit: No Qualifiers: Urinary tract infection type: acute cystitis Hematuria presence: without hematuria Qualified Code(s): N30.00 - Acute cystitis without hematuria (2) Symptomatic anemia SNOMED Code(s): 939590458 Code(s): D64.9 - ANEMIA, UNSPECIFIED Status: Acute Priority: High Current Visit: Yes (3) Fall SNOMED Code(s): 4553450, 239700027 Code(s): W19.XXXA - UNSPECIFIED FALL, INITIAL ENCOUNTER Status: Acute Priority: High Current Visit: Yes Qualifiers: Encounter type: initial encounter Qualified Code(s): W19.XXXA - Unspecified fall, initial encounter (4) Physical deconditioning SNOMED Code(s): 65648512117820 Code(s): R53.81 - OTHER MALAISE Status: Chronic Priority: High Current Visit: Yes (5) Hx of deep venous thrombosis SNOMED Code(s): 677828812 Code(s): Z86.718 - PERSONAL HISTORY OF OTHER VENOUS THROMBOSIS AND EMBOLISM Status: Chronic Current Visit: Yes - Problem List Review Problem List Initiated/Reviewed/Updated: Yes - My Orders Last 24 Hours: My Active Orders 10/28/18 08:44 oxyCODONE 5 mg PO Q4H PRN 10/28/18 08:45 Sodium Chloride 0.9% @ 75 MLS/HR(1,000ml) Sodium Chloride 0.9% [Normal Saline] 1,000 ml IV ASDIRECTED - Plan Plan:: This 88 year old female admitted with generalized weakness, falls, UTI and symptomatic anemia 1. Symptomatic anemia: Hgb stable today at 9.3. Transfused 2 units PRBCs yesterday. Is currently on Xarelto due to DVT of left leg. Monitor. Will need to continue Xarelto due to this. Will check occult. 2. UTI: WBC 14,000 today. UC returned with Mixed agustín >100,000. Will continue Rocephin. Leukocytosis maybe related to recent transfusion. Will monitor. 3. Generalized weakness and falls: PT/OT to evaluate and treat. 4. Poor appetite: Related to pain. Will give 1 L NS today and monitor. No abdominal pain. 5. DVT L Leg: having more. Gabapentin started, will monitor. Increase Oxycodone today and monitor for relief. VTE prophylaxis: Xarelto Dispo; 1-2 days pending improvement. <Juan Wong - Last Filed: 10/28/18 09:52> - General Info Admission Dx/Problem (Free Text): I have seen and examined the patient independently of Jagruti Farmer CNP. I have discuss the case with her. I agree with the assessment and plan of care as outlined by her. Please see orders. Should go to SNF tomorrow. - Patient Data Vitals - Most Recent: Last Vital Signs Temp 36.4 C 10/28/18 07:36 Pulse 105 H 10/28/18 07:36 Resp 18 10/28/18 07:36 BP 135/50 L 10/28/18 07:36 Pulse Ox 93 L 10/28/18 08:49 I&O - Last 24 Hours: Intake & Output 10/27/18 10/28/18 10/28/18 22:59 06:59 14:59 Intake Total 1130 720 Output Total 1600 400 Balance -470 320 Lab Results Last 24 Hours: Laboratory Results - last 24 hr 10/26/18 10/28/18 10/28/18 Range/Units 20:24 06:42 06:42 WBC 14.92 H (4.0-11.0) K/uL RBC 3.60 L (4.30-5.90) M/uL Hgb 9.3 L (12.0-16.0) g/dL Hct 29.3 L (36.0-46.0) % MCV 81.4 (80.0-98.0) fL MCH 25.8 L (27.0-32.0) pg MCHC 31.7 (31.0-37.0) g/dL RDW Std Deviation 47.0 (28.0-62.0) fl RDW Coeff of Anne 16 H (11.0-15.0) % Plt Count 202 (150-400) K/uL MPV 8.90 (7.40-12.00) fL Add Manual Diff YES Neutrophils % (Manual) 81 H (48.0-80.0) % Band Neutrophils % 1 % Lymphocytes % (Manual) 16 (16.0-40.0) % Monocytes % (Manual) 2 (0.0-15.0) % Nucleated RBC % 0.0 /100WBC Absolute Seg Neuts 12.1 H (1.4-5.7) Band Neutrophils # 0.1 Lymphocytes # (Manual) 2.4 (0.6-2.4) Monocytes # (Manual) 0.3 (0.0-0.8) Nucleated RBCs # 0 K/uL Sodium 134 L (136-145) mmol/L Potassium 3.7 (3.5-5.1) mmol/L Chloride 100 (98-107) mmol/L Carbon Dioxide 25.9 (21.0-32.0) mmol/L BUN 13 (7.0-18.0) mg/dL Creatinine 0.5 L (0.6-1.0) mg/dL Est Cr Clr Drug Dosing 71.33 mL/min Estimated GFR (MDRD) > 60.0 ml/min Glucose 198 H (74-106) mg/dL Calcium 8.4 L (8.5-10.1) mg/dL Magnesium 1.7 L (1.8-2.4) mg/dL Total Bilirubin 1.7 H (0.2-1.0) mg/dL AST 16 (15-37) IU/L ALT 21 (14-63) IU/L Alkaline Phosphatase 76 (46-116) U/L Total Protein 5.8 L (6.4-8.2) g/dL Albumin 1.7 L (3.4-5.0) g/dL Globulin 4.1 H (2.6-4.0) g/dL Albumin/Globulin Ratio 0.4 L (0.9-1.6) Blood Type A POSITIVE Antibody Screen NEGATIVE Crossmatch See Detail Johnny Results Last 24 Hours: Microbiology 10/26/18 21:20 Urine Culture - Final Urine, Voided MIXED AGUSTÍN >100,000 CFU/ML Med Orders - Current: Current Medications Acetaminophen (Tylenol) 650 mg PO Q6H PRN PRN Reason: Pain Last Admin: 10/28/18 02:51 Dose: 650 mg Amlodipine Besylate (Norvasc) 5 mg PO BEDTIME [facility] Last Admin: 10/27/18 20:37 Dose: 5 mg Gabapentin (Neurontin) 100 mg PO BID [facility] Last Admin: 10/28/18 08:14 Dose: 100 mg Sodium Chloride (Normal Saline) 500 mls @ 999 mls/hr IV STAT [facility] Last Admin: 10/26/18 21:02 Dose: 999 mls/hr Ceftriaxone Sodium 1 gm/ (Sodium Chloride) 50 mls @ 100 mls/hr IV Q24H [facility] Last Admin: 10/27/18 16:29 Dose: 100 mls/hr Sodium Chloride (Normal Saline) 1,000 mls @ 75 mls/hr IV ASDIRECTED [facility] Stop: 10/28/18 22:04 Oxycodone HCl (Oxycodone) 5 mg PO Q4H PRN PRN Reason: Pain Latanoprost 0.005% Ophth Soln 2.5 Ml Bottle 0 each EYELF DAILY [facility] Last Admin: 10/28/18 09:22 Dose: 1 each Latanoprost 0.005% Ophth Soln 2.5 Ml Bottle 0 each EYEBOTH BEDTIME [facility] Last Admin: 10/27/18 20:31 Dose: 1 each Potassium Chloride (Klor-Con 10) 10 meq PO DAILY [facility] Last Admin: 10/28/18 08:14 Dose: 10 meq Rivaroxaban (Xarelto) 20 mg PO DAILY@1730 [facility] Last Admin: 10/27/18 18:03 Dose: 20 mg Spironolactone (Aldactone) 25 mg PO DAILY [facility] Last Admin: 10/28/18 08:14 Dose: 25 mg Temazepam (Restoril) 15 mg PO BEDTIME PRN PRN Reason: Sleep Last Admin: 10/26/18 23:00 Dose: 15 mg Discontinued Medications Oxycodone HCl (Oxycodone) 5 mg PO Q6H PRN PRN Reason: Pain Last Admin: 10/28/18 07:42 Dose: 5 mg Oxycodone HCl (Oxycodone) 5 mg PO ONETIME ONE Stop: 10/28/18 09:00 Last Admin: 10/28/18 09:13 Dose: 5 mg - Problem List & Annotations (1) Physical deconditioning SNOMED Code(s): 50589940399544 Code(s): R53.81 - OTHER MALAISE Status: Chronic Priority: High Current Visit: Yes (2) Hyperglycemia SNOMED Code(s): 10303715 Code(s): R73.9 - HYPERGLYCEMIA, UNSPECIFIED Status: Chronic Priority: High Current Visit: Yes (3) New onset type 2 diabetes mellitus SNOMED Code(s): 24818160 Code(s): E11.9 - TYPE 2 DIABETES MELLITUS WITHOUT COMPLICATIONS Status: Chronic Priority: High Current Visit: Yes (4) Symptomatic anemia SNOMED Code(s): 540679359 Code(s): D64.9 - ANEMIA, UNSPECIFIED Status: Acute Priority: High Current Visit: Yes (5) Fall SNOMED Code(s): 1985367, 413969278 Code(s): W19.XXXA - UNSPECIFIED FALL, INITIAL ENCOUNTER Status: Acute Priority: High Current Visit: Yes Qualifiers: Encounter type: initial encounter Qualified Code(s): W19.XXXA - Unspecified fall, initial encounter - My Orders Last 24 Hours: My Active Orders 10/27/18 09:00 Gabapentin [Neurontin] 100 mg PO BID Patient's Own Medication [Ptom] 0 each EYELF DAILY Potassium Chloride [Klor-Con 10] 10 meq PO DAILY Spironolactone [Aldactone] 25 mg PO DAILY 10/27/18 14:45 cefTRIAXone [Rocephin] 1 gm Sodium Chloride 0.9% [Normal Saline] 50 ml IV Q24H 10/27/18 17:30 Rivaroxaban [Xarelto] 20 mg PO DAILY@1730 10/27/18 21:00 Patient's Own Medication [Ptom] 0 each EYEBOTH BEDTIME amLODIPine [Norvasc] 5 mg PO BEDTIME
[2018-10-28] MEDS ORDERED: oxyCODONE 5 MG Tab PO ONE (08:59)
[2018-10-28] MEDS: Latanoprost 0.005% Ophth Soln 2.5 ML Bottle EYELF SCH (09:22)
[2018-10-28] MEDS: cefTRIAXone 1 GM in Sodium Chloride 0.9% 50 ML IV SCH (15:14)
--- NOTE | 2018-10-28 17:16 | CR ---
EXAM DATE: 10/26/18 PATIENT'S AGE: 88 Patient: BUSHRA TREVIÑO Facility: [place], [place] Site . Site : 1930 Study: XRay Chest [id number]/5/2019 8:50:28 PM Ordering Physician: Doctor Prasad Final Report: INDICATION: AMS. COMPARISON: 09/14/2018. FINDINGS: A portable AP view of the chest was obtained. The cardiac silhouette is stable. The pulmonary vasculature is within normal limits. The lungs are clear of acute infiltrates. There are bilateral shoulder arthroplasties. IMPRESSION: Stable chest x-ray. No evidence of acute pulmonary disease. Dictated by Antelmo Barker MD @ 10/26/2018 9:11:42 PM Dictated by: Antelmo Barker MD @ 10/26/2018 21:11:51 (Electronic Signature) Report Signed by Proxy. MTDTessa
--- NOTE | 2018-10-28 17:18 | CR ---
EXAM DATE: 10/26/18 PATIENT'S AGE: 88 Patient: BUSHRA TREVIÑO Facility: [place], [place] Site . Site : 1930 Study: XRay Extremity Left ankle [id number]/5/2019 8:51:18 PM Ordering Physician: Wilbert Abdi Final Report: INDICATION: Pain. FINDINGS: Three views the right ankle were obtained. There is no acute fracture seen or dislocation. There is an inferior calcaneal spur. IMPRESSION: No acute bone abnormality. Dictated by Antelmo Barker MD @ 10/26/2018 9:13:05 PM Dictated by: Antelmo Barker MD @ 10/26/2018 21:13:14 (Electronic Signature) Report Signed by Proxy. [facility]
--- NOTE | 2018-10-28 17:19 | CT ---
EXAM DATE: 10/26/18 PATIENT'S AGE: 88 Patient: BUSHRA TREVIÑO Facility: [place], [place] Site . Site : 1930 Study: CT Head [id number]/5/2019 8:57:32 PM Ordering Physician: Doctor Prasad Final Report: INDICATION: AMS. TECHNIQUE: Multiple axial images were obtained through the brain without contrast. Sagittal and coronal re-formatted images were obtained. COMPARISON: 09/14/2018. FINDINGS: The ventricles and sulci are within normal limits for patient`s age. There is no mass effect or midline shift. There is no intracranial hemorrhage. The rodriguez- white matter differentiation is unremarkable. There is no fracture identified on bone windows. IMPRESSION: No change from previous study. No acute intracranial abnormality. Dictated by Antelmo Barker MD @ 10/26/2018 9:15:41 PM Please note that all CT scans at this facility use dose modulation, iterative reconstruction, and/or weight-based dosing when appropriate to reduce radiation dose to as low as reasonably achievable. Dictated by: Antelmo Barker MD @ 10/26/2018 21:16:37 (Electronic Signature) Report Signed by Proxy. [facility]
[2018-10-28] MEDS: Rivaroxaban 10 MG Tab PO SCH (17:41)
[2018-10-28] MEDS: Temazepam 15 MG Cap PO PRN (20:12)
[2018-10-28] MEDS: amLODIPine 5 MG Tab PO SCH (20:12)
[2018-10-28] MEDS: Latanoprost 0.005% Ophth Soln 2.5 ML Bottle EYEBOTH SCH (21:28)
[2018-10-29 06:12] LABS: CHLORIDE,CL 100 mmol/L (98-107); SODIUM,NA 133 mmol/L (136-145)
[2018-10-29] MEDS: oxyCODONE 5 MG Tab PO PRN ×4 (06:39→19:33)
--- NOTE | 2018-10-29 08:51 | PCM.PN ---
<Juan Wong - Last Filed: 10/29/18 11:32> - General Info Admission Dx/Problem (Free Text): I have seen and examined the patient independently of Jagruti Farmer CNP. I have discussed the case with the her. I agree with the assessment and plan of care as outlined for this patient. Please see orders. - Patient Data Vitals - Most Recent: Last Vital Signs Temp 35.5 C 10/29/18 11:25 Pulse 101 H 10/29/18 11:25 Resp 22 H 10/29/18 11:25 BP 131/62 10/29/18 11:25 Pulse Ox 92 L 10/29/18 11:25 I&O - Last 24 Hours: Intake & Output 10/28/18 10/29/18 10/29/18 22:59 06:59 14:59 Intake Total 750 1335 Output Total 300 400 Balance 450 935 Lab Results Last 24 Hours: Laboratory Results - last 24 hr 10/29/18 10/29/18 10/29/18 Range/Units 05:15 05:15 10:15 WBC 14.36 H (4.0-11.0) K/uL RBC 3.51 L (4.30-5.90) M/uL Hgb 9.1 L (12.0-16.0) g/dL Hct 28.9 L (36.0-46.0) % MCV 82.3 (80.0-98.0) fL MCH 25.9 L (27.0-32.0) pg MCHC 31.5 (31.0-37.0) g/dL RDW Std Deviation 48.1 (28.0-62.0) fl RDW Coeff of Anne 16 H (11.0-15.0) % Plt Count 203 (150-400) K/uL MPV 8.60 (7.40-12.00) fL Add Manual Diff YES Neutrophils % (Manual) 83 H (48.0-80.0) % Band Neutrophils % 3 % Lymphocytes % (Manual) 8 L (16.0-40.0) % Monocytes % (Manual) 5 (0.0-15.0) % Basophils % (Manual) 1 (0.0-1.5) % Nucleated RBC % 0.0 /100WBC Absolute Seg Neuts 11.9 H (1.4-5.7) Band Neutrophils # 0.4 Lymphocytes # (Manual) 1.1 (0.6-2.4) Monocytes # (Manual) 0.7 (0.0-0.8) Basophils # (Manual) 0.1 (0.0-0.1) Nucleated RBCs # 0 K/uL Sodium 133 L (136-145) mmol/L Potassium 4.0 (3.5-5.1) mmol/L Chloride 100 (98-107) mmol/L Carbon Dioxide 25.7 (21.0-32.0) mmol/L BUN 11 (7.0-18.0) mg/dL Creatinine 0.5 L (0.6-1.0) mg/dL Est Cr Clr Drug Dosing 71.33 mL/min Estimated GFR (MDRD) > 60.0 ml/min Glucose 174 H (74-106) mg/dL Calcium 8.5 (8.5-10.1) mg/dL Urine Color YELLOW Urine Appearance CLEAR Urine pH 7.0 (5.0-8.0) Ur Specific [place] 1.010 (1.001-1.035) Urine Protein NEGATIVE (NEGATIVE) mg/dL Urine Glucose (UA) NEGATIVE (NEGATIVE) mg/dL Urine Ketones NEGATIVE (NEGATIVE) mg/dL Urine Occult Blood MODERATE H (NEGATIVE) Urine Nitrite NEGATIVE (NEGATIVE) Urine Bilirubin NEGATIVE (NEGATIVE) Urine Urobilinogen >=8.0 H (<2.0) EU/dL Ur Leukocyte Esterase NEGATIVE (NEGATIVE) Urine RBC 10-15 (0-2/HPF) Urine WBC 1-3 (0-5/HPF) Ur Epithelial Cells FEW (NONE-FEW) Urine Bacteria FEW (NEGATIVE) Johnny Results Last 24 Hours: Microbiology 10/26/18 21:20 Urine Culture - Final Urine, Voided MIXED AGUSTÍN >100,000 CFU/ML Med Orders - Current: Current Medications Acetaminophen (Tylenol) 650 mg PO Q6H PRN PRN Reason: Pain Last Admin: 10/29/18 09:04 Dose: 650 mg Amlodipine Besylate (Norvasc) 5 mg PO BEDTIME [facility] Last Admin: 10/28/18 20:12 Dose: 5 mg Gabapentin (Neurontin) 100 mg PO BID [facility] Last Admin: 10/29/18 09:04 Dose: 100 mg Sodium Chloride (Normal Saline) 500 mls @ 999 mls/hr IV STAT [facility] Last Admin: 10/26/18 21:02 Dose: 999 mls/hr Ceftriaxone Sodium 1 gm/ (Sodium Chloride) 50 mls @ 100 mls/hr IV Q24H [facility] Last Admin: 10/28/18 15:14 Dose: 100 mls/hr Oxycodone HCl (Oxycodone) 5 mg PO Q4H PRN PRN Reason: Pain Last Admin: 10/29/18 10:50 Dose: 5 mg Latanoprost 0.005% Ophth Soln 2.5 Ml Bottle 0 each EYELF DAILY [facility] Last Admin: 10/29/18 09:10 Dose: 1 each Latanoprost 0.005% Ophth Soln 2.5 Ml Bottle 0 each EYEBOTH BEDTIME [facility] Last Admin: 10/28/18 21:28 Dose: Not Given Potassium Chloride (Klor-Con 10) 10 meq PO DAILY [facility] Last Admin: 10/29/18 09:04 Dose: 10 meq Rivaroxaban (Xarelto) 20 mg PO DAILY@1730 [facility] Last Admin: 10/28/18 17:41 Dose: 20 mg Spironolactone (Aldactone) 25 mg PO DAILY [facility] Last Admin: 10/29/18 09:04 Dose: 25 mg Temazepam (Restoril) 15 mg PO BEDTIME PRN PRN Reason: Sleep Last Admin: 10/28/18 20:12 Dose: 15 mg Discontinued Medications Sodium Chloride (Normal Saline) 1,000 mls @ 75 mls/hr IV ASDIRECTED [facility] Stop: 10/28/18 22:04 Last Admin: 10/28/18 15:16 Dose: 75 mls/hr Oxycodone HCl (Oxycodone) 5 mg PO Q6H PRN PRN Reason: Pain Last Admin: 10/28/18 07:42 Dose: 5 mg Oxycodone HCl (Oxycodone) 5 mg PO ONETIME ONE Stop: 10/28/18 09:00 Last Admin: 10/28/18 09:13 Dose: 5 mg - Problem List & Annotations (1) Physical deconditioning SNOMED Code(s): 01721598506283 Code(s): R53.81 - OTHER MALAISE Status: Chronic Priority: High Current Visit: Yes (2) Hyperglycemia SNOMED Code(s): 81377618 Code(s): R73.9 - HYPERGLYCEMIA, UNSPECIFIED Status: Chronic Priority: High Current Visit: Yes (3) New onset type 2 diabetes mellitus SNOMED Code(s): 86546023 Code(s): E11.9 - TYPE 2 DIABETES MELLITUS WITHOUT COMPLICATIONS Status: Chronic Priority: High Current Visit: Yes (4) Symptomatic anemia SNOMED Code(s): 235635930 Code(s): D64.9 - ANEMIA, UNSPECIFIED Status: Acute Priority: High Current Visit: Yes (5) Fall SNOMED Code(s): 7063018, 663290056 Code(s): W19.XXXA - UNSPECIFIED FALL, INITIAL ENCOUNTER Status: Acute Priority: High Current Visit: Yes Qualifiers: Encounter type: initial encounter Qualified Code(s): W19.XXXA - Unspecified fall, initial encounter - Problem List Review Problem List Initiated/Reviewed/Updated: Yes <Jagruti Farmer M - Last Filed: 10/29/18 11:46> - General Info Date of Service: 10/29/18 Admission Dx/Problem (Free Text): Anemia, weakness, falls Subjective Update: Noted to be very warm on assessment, reports hot. Denies chest pain or SOB. Pain to LLE with swelling. Functional Status: Reports: Pain Controlled, Tolerating Diet, Ambulating, Urinating - Review of Systems General: Reports: Fever, Weakness, Fatigue, Malaise HEENT: Denies: Headaches, Sore Throat, Visual Changes Pulmonary: Reports: No Symptoms. Denies: Shortness of Breath, Cough Cardiovascular: Reports: Edema. Denies: Chest Pain, Palpitations Gastrointestinal: Reports: No Symptoms. Denies: Abdominal Pain, Nausea, Vomiting Genitourinary: Reports: No Symptoms Musculoskeletal: Reports: Leg Pain (left leg pain) Skin: Reports: No Symptoms Neurological: Reports: No Symptoms Psychiatric: Reports: No Symptoms - Patient Data Vitals - Most Recent: Last Vital Signs Temp 96.6 F 10/29/18 04:00 Pulse 88 10/29/18 04:00 Resp 17 10/29/18 04:00 BP 120/62 10/29/18 04:00 Pulse Ox 92 L 10/29/18 04:00 Weight - Most Recent: 59.285 kg I&O - Last 24 Hours: Intake & Output 10/28/18 10/29/18 10/29/18 22:59 06:59 14:59 Intake Total 750 1335 Output Total 300 400 Balance 450 935 Lab Results Last 24 Hours: Laboratory Results - last 24 hr 10/26/18 10/29/18 10/29/18 Range/Units 20:24 05:15 05:15 WBC 14.36 H (4.0-11.0) K/uL RBC 3.51 L (4.30-5.90) M/uL Hgb 9.1 L (12.0-16.0) g/dL Hct 28.9 L (36.0-46.0) % MCV 82.3 (80.0-98.0) fL MCH 25.9 L (27.0-32.0) pg MCHC 31.5 (31.0-37.0) g/dL RDW Std Deviation 48.1 (28.0-62.0) fl RDW Coeff of Anne 16 H (11.0-15.0) % Plt Count 203 (150-400) K/uL MPV 8.60 (7.40-12.00) fL Add Manual Diff YES Neutrophils % (Manual) 83 H (48.0-80.0) % Band Neutrophils % 3 % Lymphocytes % (Manual) 8 L (16.0-40.0) % Monocytes % (Manual) 5 (0.0-15.0) % Basophils % (Manual) 1 (0.0-1.5) % Nucleated RBC % 0.0 /100WBC Absolute Seg Neuts 11.9 H (1.4-5.7) Band Neutrophils # 0.4 Lymphocytes # (Manual) 1.1 (0.6-2.4) Monocytes # (Manual) 0.7 (0.0-0.8) Basophils # (Manual) 0.1 (0.0-0.1) Nucleated RBCs # 0 K/uL Sodium 133 L (136-145) mmol/L Potassium 4.0 (3.5-5.1) mmol/L Chloride 100 (98-107) mmol/L Carbon Dioxide 25.7 (21.0-32.0) mmol/L BUN 11 (7.0-18.0) mg/dL Creatinine 0.5 L (0.6-1.0) mg/dL Est Cr Clr Drug Dosing 71.33 mL/min Estimated GFR (MDRD) > 60.0 ml/min Glucose 174 H (74-106) mg/dL Calcium 8.5 (8.5-10.1) mg/dL Blood Type A POSITIVE Antibody Screen NEGATIVE Crossmatch See Detail Johnny Results Last 24 Hours: Microbiology 10/26/18 21:20 Urine Culture - Final Urine, Voided MIXED AGUSTÍN >100,000 CFU/ML Med Orders - Current: Current Medications Acetaminophen (Tylenol) 650 mg PO Q6H PRN PRN Reason: Pain Last Admin: 10/28/18 20:12 Dose: 650 mg Amlodipine Besylate (Norvasc) 5 mg PO BEDTIME [facility] Last Admin: 10/28/18 20:12 Dose: 5 mg Gabapentin (Neurontin) 100 mg PO BID [facility] Last Admin: 10/28/18 20:12 Dose: 100 mg Sodium Chloride (Normal Saline) 500 mls @ 999 mls/hr IV STAT [facility] Last Admin: 10/26/18 21:02 Dose: 999 mls/hr Ceftriaxone Sodium 1 gm/ (Sodium Chloride) 50 mls @ 100 mls/hr IV Q24H [facility] Last Admin: 10/28/18 15:14 Dose: 100 mls/hr Oxycodone HCl (Oxycodone) 5 mg PO Q4H PRN PRN Reason: Pain Last Admin: 10/29/18 06:39 Dose: 5 mg Latanoprost 0.005% Ophth Soln 2.5 Ml Bottle 0 each EYELF DAILY [facility] Last Admin: 10/28/18 09:22 Dose: 1 each Latanoprost 0.005% Ophth Soln 2.5 Ml Bottle 0 each EYEBOTH BEDTIME [facility] Last Admin: 10/28/18 21:28 Dose: Not Given Potassium Chloride (Klor-Con 10) 10 meq PO DAILY [facility] Last Admin: 10/28/18 08:14 Dose: 10 meq Rivaroxaban (Xarelto) 20 mg PO DAILY@1730 [facility] Last Admin: 10/28/18 17:41 Dose: 20 mg Spironolactone (Aldactone) 25 mg PO DAILY [facility] Last Admin: 10/28/18 08:14 Dose: 25 mg Temazepam (Restoril) 15 mg PO BEDTIME PRN PRN Reason: Sleep Last Admin: 10/28/18 20:12 Dose: 15 mg Discontinued Medications Sodium Chloride (Normal Saline) 1,000 mls @ 75 mls/hr IV ASDIRECTED [facility] Stop: 10/28/18 22:04 Last Admin: 10/28/18 15:16 Dose: 75 mls/hr Oxycodone HCl (Oxycodone) 5 mg PO Q6H PRN PRN Reason: Pain Last Admin: 10/28/18 07:42 Dose: 5 mg Oxycodone HCl (Oxycodone) 5 mg PO ONETIME ONE Stop: 10/28/18 09:00 Last Admin: 10/28/18 09:13 Dose: 5 mg - Exam General: Alert, Oriented, Cooperative, No Acute Distress Lungs: Crackles (bibasilar) Cardiovascular: Regular Rate, Regular Rhythm GI/Abdominal Exam: Normal Bowel Sounds, Soft, Non-Tender Extremities: Normal Inspection, Normal Range of Motion, Pedal Edema (+2 edema pitting L leg), Leg Pain (Left) Neurological: No New Focal Deficit Psy/Mental Status: Alert, Normal Affect - Problem List & Annotations (1) HCAP (healthcare-associated pneumonia) SNOMED Code(s): 845200464 Code(s): J18.9 - PNEUMONIA, UNSPECIFIED ORGANISM Status: Acute Current Visit: Yes (2) UTI (urinary tract infection) SNOMED Code(s): 11245235 Code(s): N39.0 - URINARY TRACT INFECTION, SITE NOT SPECIFIED Status: Acute Current Visit: No Qualifiers: Urinary tract infection type: acute cystitis Hematuria presence: without hematuria Qualified Code(s): N30.00 - Acute cystitis without hematuria (3) Symptomatic anemia SNOMED Code(s): 642681815 Code(s): D64.9 - ANEMIA, UNSPECIFIED Status: Acute Priority: High Current Visit: Yes (4) Fall SNOMED Code(s): 8307565, 719057095 Code(s): W19.XXXA - UNSPECIFIED FALL, INITIAL ENCOUNTER Status: Acute Priority: High Current Visit: Yes Qualifiers: Encounter type: initial encounter Qualified Code(s): W19.XXXA - Unspecified fall, initial encounter (5) Physical deconditioning SNOMED Code(s): 20350511137583 Code(s): R53.81 - OTHER MALAISE Status: Chronic Priority: High Current Visit: Yes (6) Hx of deep venous thrombosis SNOMED Code(s): 401338371 Code(s): Z86.718 - PERSONAL HISTORY OF OTHER VENOUS THROMBOSIS AND EMBOLISM Status: Chronic Current Visit: Yes - Problem List Review Problem List Initiated/Reviewed/Updated: Yes - My Orders Last 24 Hours: My Active Orders 10/28/18 08:44 oxyCODONE 5 mg PO Q4H PRN 10/28/18 09:35 OCCULT BLOOD SCREEN [OP] Routine 10/29/18 08:18 Chest 1V Frontal [CR] Urgent CULTURE URINE [RM] Routine UA W/MICROSCOPIC [URIN] Routine Blood Culture x2 Reflex Set [OM.PC] Stat 10/29/18 08:19 CULTURE BLOOD [BC] Stat CULTURE BLOOD [BC] Stat 10/29/18 08:49 Patient Status [ADT] Stat Venous Doppler Lwr Ext Lt [US] Routine - Plan Plan:: This 88 year old female admitted with generalized weakness, falls, UTI and symptomatic anemia 1. Symptomatic anemia: Hgb stable today at 9.1. Continue Xarelto due to DVT of left leg. Monitor. Will check occult. 2. UTI: WBC 14,000 still today. UC returned with Mixed agustín >100,000. Fever this morning, obtained BC, CXR and repeat UA. CX revealed L basilar infiltrate and or atelectasis. Discussed changing Rocephin to Levaquin with daughter due to allergy. She reports Cipro gave joint aches but she is willing to try Levaquin for now to treat for HCAP, will also add Vancomycin. Will monitor. 3. Generalized weakness and falls: PT/OT to evaluate and treat. 4. Poor appetite: Related to pain. No abdominal pain. 5. DVT L Leg: having more. Gabapentin started, will monitor.Continue Oxycodone. VTE prophylaxis: Xarelto Dispo; 1-2 days pending improvement.
[2018-10-29] MEDS: Potassium Chloride 10 MEQ Tab.ER PO SCH (09:04)
[2018-10-29] MEDS: Spironolactone 25 MG Tab PO SCH (09:04)
[2018-10-29] MEDS: Gabapentin 100 MG Cap PO SCH ×2 (09:04→20:39)
[2018-10-29] MEDS: Acetaminophen 325 MG Tab PO PRN ×3 (09:04→23:07)
[2018-10-29] MEDS: Latanoprost 0.005% Ophth Soln 2.5 ML Bottle EYELF SCH (09:10)
--- NOTE | 2018-10-29 10:14 | CR ---
EXAMINATION: Portable chest radiograph. HISTORY: Fever. FINDINGS: The trachea is midline. The cardiomediastinal silhouette is grossly stable mild chronic interstitial prominence. Mild left basilar atelectasis and/or infiltrate with a trace left pleural effusion. Bilateral shoulder replacement hardware noted. Generalized osteopenia. IMPRESSION: Mild left basilar atelectasis and/or infiltrate with a trace left pleural effusion.
--- NOTE | 2018-10-29 10:26 | US ---
ULTRASOUND EXAMINATION OF the left lower extremity WITH DOPPLER HISTORY: Pain FINDINGS: Examination of the left leg was performed from the groin to the calf region. There is a filling defect within the left mid femoral vein extending through the popliteal vein into the calf. Filling defect also noted within the SSV. There is a vague hypoechoic nonvascular collection noted within the left distal thigh musculature measuring 3.1 x 2.7 cm. IMPRESSION: 1. Deep vein thrombosis noted within the left femoral vein extending into the calf. 2. Left distal thigh collection, nonvascular. Possibly a hematoma. An abscess is less likely.
[2018-10-29] MEDS: Levofloxacin/Dextrose 5%-Water 750 MG in Premix Bag 1 BAG IV SCH (13:32)
[2018-10-29] MEDS: Rivaroxaban 10 MG Tab PO SCH (17:17)
[2018-10-29] MEDS: Latanoprost 0.005% Ophth Soln 2.5 ML Bottle EYEBOTH SCH (20:39)
[2018-10-29] MEDS: amLODIPine 5 MG Tab PO SCH (20:39)
[2018-10-29] MEDS: Temazepam 15 MG Cap PO PRN (23:07)
[2018-10-30] MEDS: Acetaminophen 325 MG Tab PO PRN ×3 (05:12→20:13)
[2018-10-30] MEDS: oxyCODONE 5 MG Tab PO PRN ×4 (07:03→18:59)
[2018-10-30 08:40] LABS: CHLORIDE,CL 98 mmol/L (98-107); SODIUM,NA 132 mmol/L (136-145)
--- NOTE | 2018-10-30 08:57 | PCM.PN ---
<Jagruti Farmer M - Last Filed: 10/30/18 10:45> - General Info Date of Service: 10/30/18 Admission Dx/Problem (Free Text): Anemia, weakness, falls Subjective Update: Most alert today than in the last couple days. eating breakfast. Reports pain is tolerable this morning. NO chest pain or SOB. Swelling to leg is about the same. no redness Functional Status: Reports: Pain Controlled, Tolerating Diet, Urinating - Review of Systems General: Reports: Weakness (generalized), Malaise HEENT: Reports: No Symptoms Pulmonary: Denies: Shortness of Breath, Cough Cardiovascular: Reports: Edema. Denies: Chest Pain, Palpitations Gastrointestinal: Reports: No Symptoms. Denies: Abdominal Pain, Nausea, Vomiting Genitourinary: Reports: No Symptoms Musculoskeletal: Reports: Leg Pain (left) Skin: Reports: No Symptoms Neurological: Reports: No Symptoms Psychiatric: Reports: No Symptoms - Patient Data Vitals - Most Recent: Last Vital Signs Temp 98.7 F 10/30/18 08:17 Pulse 115 H 10/30/18 07:00 Resp 18 10/30/18 07:00 BP 129/60 10/30/18 07:00 Pulse Ox 92 L 10/30/18 07:00 Weight - Most Recent: 59.285 kg I&O - Last 24 Hours: Intake & Output 10/29/18 10/30/18 10/30/18 22:59 06:59 14:59 Intake Total 1660 550 Output Total 1150 300 Balance 510 250 Lab Results Last 24 Hours: Laboratory Results - last 24 hr 10/26/18 10/29/18 10/30/18 Range/Units 20:24 10:15 08:05 WBC 16.65 H (4.0-11.0) K/uL RBC 3.25 L (4.30-5.90) M/uL Hgb 8.5 L (12.0-16.0) g/dL Hct 26.8 L (36.0-46.0) % MCV 82.5 (80.0-98.0) fL MCH 26.2 L (27.0-32.0) pg MCHC 31.7 (31.0-37.0) g/dL RDW Std Deviation 49.3 (28.0-62.0) fl RDW Coeff of Anne 16 H (11.0-15.0) % Plt Count 201 (150-400) K/uL MPV 8.60 (7.40-12.00) fL Add Manual Diff YES Nucleated RBC % 0.0 /100WBC Nucleated RBCs # 0 K/uL Sodium (136-145) mmol/L Potassium (3.5-5.1) mmol/L Chloride (98-107) mmol/L Carbon Dioxide (21.0-32.0) mmol/L BUN (7.0-18.0) mg/dL Creatinine (0.6-1.0) mg/dL Est Cr Clr Drug Dosing mL/min Estimated GFR (MDRD) ml/min Glucose (74-106) mg/dL Calcium (8.5-10.1) mg/dL Urine Color YELLOW Urine Appearance CLEAR Urine pH 7.0 (5.0-8.0) Ur Specific [place] 1.010 (1.001-1.035) Urine Protein NEGATIVE (NEGATIVE) mg/dL Urine Glucose (UA) NEGATIVE (NEGATIVE) mg/dL Urine Ketones NEGATIVE (NEGATIVE) mg/dL Urine Occult Blood MODERATE H (NEGATIVE) Urine Nitrite NEGATIVE (NEGATIVE) Urine Bilirubin NEGATIVE (NEGATIVE) Urine Urobilinogen >=8.0 H (<2.0) EU/dL Ur Leukocyte Esterase NEGATIVE (NEGATIVE) Urine RBC 10-15 (0-2/HPF) Urine WBC 1-3 (0-5/HPF) Ur Epithelial Cells FEW (NONE-FEW) Urine Bacteria FEW (NEGATIVE) Crossmatch See Detail 10/30/18 Range/Units 08:05 WBC (4.0-11.0) K/uL RBC (4.30-5.90) M/uL Hgb (12.0-16.0) g/dL Hct (36.0-46.0) % MCV (80.0-98.0) fL MCH (27.0-32.0) pg MCHC (31.0-37.0) g/dL RDW Std Deviation (28.0-62.0) fl RDW Coeff of Anne (11.0-15.0) % Plt Count (150-400) K/uL MPV (7.40-12.00) fL Add Manual Diff Nucleated RBC % /100WBC Nucleated RBCs # K/uL Sodium 132 L (136-145) mmol/L Potassium 4.2 (3.5-5.1) mmol/L Chloride 98 (98-107) mmol/L Carbon Dioxide 26.0 (21.0-32.0) mmol/L BUN 13 (7.0-18.0) mg/dL Creatinine 0.6 (0.6-1.0) mg/dL Est Cr Clr Drug Dosing 59.44 mL/min Estimated GFR (MDRD) > 60.0 ml/min Glucose 178 H (74-106) mg/dL Calcium 8.4 L (8.5-10.1) mg/dL Urine Color Urine Appearance Urine pH (5.0-8.0) Ur Specific [place] (1.001-1.035) Urine Protein (NEGATIVE) mg/dL Urine Glucose (UA) (NEGATIVE) mg/dL Urine Ketones (NEGATIVE) mg/dL Urine Occult Blood (NEGATIVE) Urine Nitrite (NEGATIVE) Urine Bilirubin (NEGATIVE) Urine Urobilinogen (<2.0) EU/dL Ur Leukocyte Esterase (NEGATIVE) Urine RBC (0-2/HPF) Urine WBC (0-5/HPF) Ur Epithelial Cells (NONE-FEW) Urine Bacteria (NEGATIVE) Crossmatch Johnny Results Last 24 Hours: Microbiology 10/29/18 08:39 Aerobic Blood Culture - Preliminary Blood - Venous - Lab Draw NO GROWTH AFTER 1 DAY Anaerobic Blood Culture - Preliminary NO GROWTH AFTER 1 DAY 10/29/18 08:39 Aerobic Blood Culture - Preliminary Blood - Venous NO GROWTH AFTER 1 DAY Anaerobic Blood Culture - Preliminary NO GROWTH AFTER 1 DAY Med Orders - Current: Current Medications Acetaminophen (Tylenol) 650 mg PO Q6H PRN PRN Reason: Pain Last Admin: 10/30/18 05:12 Dose: 650 mg Amlodipine Besylate (Norvasc) 5 mg PO BEDTIME [facility] Last Admin: 10/29/18 20:39 Dose: 5 mg Gabapentin (Neurontin) 100 mg PO BID [facility] Last Admin: 10/29/18 20:39 Dose: 100 mg Sodium Chloride (Normal Saline) 500 mls @ 999 mls/hr IV STAT [facility] Last Admin: 10/26/18 21:02 Dose: 999 mls/hr Levofloxacin/Dextrose 750 mg/ (Premix) 150 mls @ 100 mls/hr IV Q24H [facility] Last Admin: 10/29/18 13:32 Dose: 100 mls/hr Vancomycin HCl 1 gm/ Sodium (Chloride) 250 mls @ 166.667 mls/hr IV Q12H [facility] Last Admin: 10/30/18 00:21 Dose: 166.667 mls/hr Oxycodone HCl (Oxycodone) 5 mg PO Q4H PRN PRN Reason: Pain Last Admin: 10/30/18 07:03 Dose: 5 mg Latanoprost 0.005% Ophth Soln 2.5 Ml Bottle 0 each EYELF DAILY [facility] Last Admin: 10/29/18 09:10 Dose: 1 each Latanoprost 0.005% Ophth Soln 2.5 Ml Bottle 0 each EYEBOTH BEDTIME [facility] Last Admin: 10/29/18 20:39 Dose: 1 each Potassium Chloride (Klor-Con 10) 10 meq PO DAILY [facility] Last Admin: 10/29/18 09:04 Dose: 10 meq Rivaroxaban (Xarelto) 20 mg PO DAILY@1730 [facility] Last Admin: 10/29/18 17:17 Dose: 20 mg Spironolactone (Aldactone) 25 mg PO DAILY [facility] Last Admin: 10/29/18 09:04 Dose: 25 mg Temazepam (Restoril) 15 mg PO BEDTIME PRN PRN Reason: Sleep Last Admin: 10/29/18 23:07 Dose: 15 mg Vancomycin HCl (Pharmacy To Dose - Vancomycin) 1 dose .XX ASDIRECTED [facility] Discontinued Medications Ceftriaxone Sodium 1 gm/ (Sodium Chloride) 50 mls @ 100 mls/hr IV Q24H [facility] Last Admin: 10/28/18 15:14 Dose: 100 mls/hr Sodium Chloride (Normal Saline) 1,000 mls @ 75 mls/hr IV ASDIRECTED [facility] Stop: 10/28/18 22:04 Last Admin: 10/28/18 15:16 Dose: 75 mls/hr Oxycodone HCl (Oxycodone) 5 mg PO Q6H PRN PRN Reason: Pain Last Admin: 10/28/18 07:42 Dose: 5 mg Oxycodone HCl (Oxycodone) 5 mg PO ONETIME ONE Stop: 10/28/18 09:00 Last Admin: 10/28/18 09:13 Dose: 5 mg - Exam Quality Assessment: DVT Prophylaxis General: Alert, Oriented, Cooperative Neck: Supple Lungs: Clear to Auscultation, Normal Respiratory Effort Cardiovascular: Irregular Rhythm, Tachycardia (intermittently) GI/Abdominal Exam: Normal Bowel Sounds, Soft, Non-Tender, No Mass Extremities: Pedal Edema (+2 pitting edema to L lower left with tenderness to leg, pulse present ) Peripheral Pulses: 2+: Posterior Tibial (L), Posterior Tibial (R), Dorsalis Pedis (L), Dorsalis Pedis (R) Wound/Incisions: No: Erythema Neurological: No New Focal Deficit Psy/Mental Status: Alert, Normal Affect, Normal Mood - Problem List & Annotations (1) HCAP (healthcare-associated pneumonia) SNOMED Code(s): 521600952 Code(s): J18.9 - PNEUMONIA, UNSPECIFIED ORGANISM Status: Acute Current Visit: Yes (2) UTI (urinary tract infection) SNOMED Code(s): 46455107 Code(s): N39.0 - URINARY TRACT INFECTION, SITE NOT SPECIFIED Status: Acute Current Visit: No Qualifiers: Urinary tract infection type: acute cystitis Hematuria presence: without hematuria Qualified Code(s): N30.00 - Acute cystitis without hematuria (3) Symptomatic anemia SNOMED Code(s): 688721816 Code(s): D64.9 - ANEMIA, UNSPECIFIED Status: Acute Priority: High Current Visit: Yes (4) Fall SNOMED Code(s): 8290325, 037409091 Code(s): W19.XXXA - UNSPECIFIED FALL, INITIAL ENCOUNTER Status: Acute Priority: High Current Visit: Yes Qualifiers: Encounter type: initial encounter Qualified Code(s): W19.XXXA - Unspecified fall, initial encounter (5) Physical deconditioning SNOMED Code(s): 21607796134568 Code(s): R53.81 - OTHER MALAISE Status: Chronic Priority: High Current Visit: Yes (6) Hx of deep venous thrombosis SNOMED Code(s): 574539637 Code(s): Z86.718 - PERSONAL HISTORY OF OTHER VENOUS THROMBOSIS AND EMBOLISM Status: Chronic Current Visit: Yes - Problem List Review Problem List Initiated/Reviewed/Updated: Yes - My Orders Last 24 Hours: My Active Orders 10/29/18 08:18 CULTURE URINE [RM] Routine Blood Culture x2 Reflex Set [OM.PC] Stat 10/29/18 08:39 CULTURE BLOOD [BC] Stat CULTURE BLOOD [BC] Stat 10/29/18 08:49 Patient Status [ADT] Stat 10/29/18 10:49 OCCULT BLOOD SCREEN [OP] Routine 10/29/18 11:45 Levofloxacin/Dextrose 5%-Water [Levaquin in D5W 750 MG/150 ML] 750 mg Premix Bag 1 bag IV Q24H Pharmacy to Dose - Vancomycin 1 dose .XX ASDIRECTED 10/29/18 11:47 RAHEL Bandage [Elastic Wrap] [OM.PC] Routine 10/29/18 13:00 Vancomycin [Vancocin] 1 gm Sodium Chloride 0.9% [Normal Saline] 250 ml IV Q12H 10/30/18 08:05 CBC WITH AUTO DIFF [HEME] Routine 10/31/18 00:30 VANCOMYCIN TROUGH [CHEM] Timed - Plan Plan:: This 88 year old female admitted with generalized weakness, falls, UTI and symptomatic anemia 1. Symptomatic anemia: Hgb 8.5. Continue Xarelto due to DVT of left leg. Monitor. Will check occult. 2. HCAP: WBC 16,000 still today. Fever better, obtained BC, CXR and repeat UA. Levaquin and Vancomycin continue. Discuss increased leukocytosis with Dr Wong , possible further imaging of L leg, but will monitor today. No signs of cellulitis to leg. 3. UTI: UC returned with Mixed agustín >100,000. Repeat UC pending. Abx as above. 4. Generalized weakness and falls: PT/OT to evaluate and treat. 5. DVT L Leg: having more. Gabapentin to neuropathy. Continue Oxycodone. VTE prophylaxis: Xarelto Dispo; 1-2 days pending improvement. <Juan Wong - Last Filed: 10/30/18 14:36> - General Info Admission Dx/Problem (Free Text): I have seen and examined the patient independently of Jagruti Farmer CNP. I have discussed the case with the her. I agree with the assessment and plan of care outlined for this patient. Please see orders. - Patient Data Vitals - Most Recent: Last Vital Signs Temp 37.1 C 10/30/18 08:17 Pulse 115 H 10/30/18 07:00 Resp 18 10/30/18 07:00 BP 129/60 10/30/18 07:00 Pulse Ox 92 L 10/30/18 07:00 I&O - Last 24 Hours: Intake & Output 10/29/18 10/30/18 10/30/18 22:59 06:59 14:59 Intake Total 1660 550 Output Total 1150 300 Balance 510 250 Lab Results Last 24 Hours: Laboratory Results - last 24 hr 10/26/18 10/30/18 10/30/18 Range/Units 20:24 08:05 08:05 WBC 16.65 H (4.0-11.0) K/uL RBC 3.25 L (4.30-5.90) M/uL Hgb 8.5 L (12.0-16.0) g/dL Hct 26.8 L (36.0-46.0) % MCV 82.5 (80.0-98.0) fL MCH 26.2 L (27.0-32.0) pg MCHC 31.7 (31.0-37.0) g/dL RDW Std Deviation 49.3 (28.0-62.0) fl RDW Coeff of Anne 16 H (11.0-15.0) % Plt Count 201 (150-400) K/uL MPV 8.60 (7.40-12.00) fL Add Manual Diff YES Neutrophils % (Manual) 87 H (48.0-80.0) % Band Neutrophils % 2 % Lymphocytes % (Manual) 4 L (16.0-40.0) % Monocytes % (Manual) 6 (0.0-15.0) % Basophils % (Manual) 1 (0.0-1.5) % Nucleated RBC % 0.0 /100WBC Absolute Seg Neuts 14.5 H (1.4-5.7) Band Neutrophils # 0.3 Lymphocytes # (Manual) 0.7 (0.6-2.4) Monocytes # (Manual) 1.0 H (0.0-0.8) Basophils # (Manual) 0.2 H (0.0-0.1) Nucleated RBCs # 0 K/uL Sodium 132 L (136-145) mmol/L Potassium 4.2 (3.5-5.1) mmol/L Chloride 98 (98-107) mmol/L Carbon Dioxide 26.0 (21.0-32.0) mmol/L BUN 13 (7.0-18.0) mg/dL Creatinine 0.6 (0.6-1.0) mg/dL Est Cr Clr Drug Dosing 59.44 mL/min Estimated GFR (MDRD) > 60.0 ml/min Glucose 178 H (74-106) mg/dL Calcium 8.4 L (8.5-10.1) mg/dL Magnesium (1.8-2.4) mg/dL Crossmatch See Detail 10/30/18 Range/Units 08:08 WBC (4.0-11.0) K/uL RBC (4.30-5.90) M/uL Hgb (12.0-16.0) g/dL Hct (36.0-46.0) % MCV (80.0-98.0) fL MCH (27.0-32.0) pg MCHC (31.0-37.0) g/dL RDW Std Deviation (28.0-62.0) fl RDW Coeff of Anne (11.0-15.0) % Plt Count (150-400) K/uL MPV (7.40-12.00) fL Add Manual Diff Neutrophils % (Manual) (48.0-80.0) % Band Neutrophils % % Lymphocytes % (Manual) (16.0-40.0) % Monocytes % (Manual) (0.0-15.0) % Basophils % (Manual) (0.0-1.5) % Nucleated RBC % /100WBC Absolute Seg Neuts (1.4-5.7) Band Neutrophils # Lymphocytes # (Manual) (0.6-2.4) Monocytes # (Manual) (0.0-0.8) Basophils # (Manual) (0.0-0.1) Nucleated RBCs # K/uL Sodium (136-145) mmol/L Potassium (3.5-5.1) mmol/L Chloride (98-107) mmol/L Carbon Dioxide (21.0-32.0) mmol/L BUN (7.0-18.0) mg/dL Creatinine (0.6-1.0) mg/dL Est Cr Clr Drug Dosing mL/min Estimated GFR (MDRD) ml/min Glucose (74-106) mg/dL Calcium (8.5-10.1) mg/dL Magnesium 1.7 L (1.8-2.4) mg/dL Crossmatch Johnny Results Last 24 Hours: Microbiology 10/29/18 08:39 Aerobic Blood Culture - Preliminary Blood - Venous - Lab Draw NO GROWTH AFTER 1 DAY Anaerobic Blood Culture - Preliminary NO GROWTH AFTER 1 DAY 10/29/18 08:39 Aerobic Blood Culture - Preliminary Blood - Venous NO GROWTH AFTER 1 DAY Anaerobic Blood Culture - Preliminary NO GROWTH AFTER 1 DAY Med Orders - Current: Current Medications Acetaminophen (Tylenol) 650 mg PO Q6H PRN PRN Reason: Pain Last Admin: 10/30/18 13:25 Dose: 650 mg Amlodipine Besylate (Norvasc) 5 mg PO BEDTIME [facility] Last Admin: 10/29/18 20:39 Dose: 5 mg Gabapentin (Neurontin) 100 mg PO BID [facility] Last Admin: 10/30/18 09:24 Dose: 100 mg Sodium Chloride (Normal Saline) 500 mls @ 999 mls/hr IV STAT [facility] Last Admin: 10/26/18 21:02 Dose: 999 mls/hr Levofloxacin/Dextrose 750 mg/ (Premix) 150 mls @ 100 mls/hr IV Q24H [facility] Last Admin: 10/30/18 11:02 Dose: 100 mls/hr Vancomycin HCl 1 gm/ Sodium (Chloride) 250 mls @ 166.667 mls/hr IV Q12H [facility] Last Admin: 10/30/18 13:51 Dose: 166.667 mls/hr Oxycodone HCl (Oxycodone) 5 mg PO Q4H PRN PRN Reason: Pain Last Admin: 10/30/18 11:02 Dose: 5 mg Latanoprost 0.005% Ophth Soln 2.5 Ml Bottle 0 each EYELF DAILY [facility] Last Admin: 10/30/18 09:25 Dose: 1 each Latanoprost 0.005% Ophth Soln 2.5 Ml Bottle 0 each EYEBOTH BEDTIME [facility] Last Admin: 10/29/18 20:39 Dose: 1 each Potassium Chloride (Klor-Con 10) 10 meq PO DAILY [facility] Last Admin: 10/30/18 09:24 Dose: 10 meq Rivaroxaban (Xarelto) 20 mg PO DAILY@1730 [facility] Last Admin: 10/29/18 17:17 Dose: 20 mg Spironolactone (Aldactone) 25 mg PO DAILY [facility] Last Admin: 10/30/18 09:24 Dose: 25 mg Temazepam (Restoril) 15 mg PO BEDTIME PRN PRN Reason: Sleep Last Admin: 10/29/18 23:07 Dose: 15 mg Vancomycin HCl (Pharmacy To Dose - Vancomycin) 1 dose .XX ASDIRECTED [facility] Zinc Acetate/Diphenhydramine (Benadryl Itch Stopping Crm) 0 gm TOP Q4H PRN PRN Reason: itching Discontinued Medications Ceftriaxone Sodium 1 gm/ (Sodium Chloride) 50 mls @ 100 mls/hr IV Q24H [facility] Last Admin: 10/28/18 15:14 Dose: 100 mls/hr Sodium Chloride (Normal Saline) 1,000 mls @ 75 mls/hr IV ASDIRECTED [facility] Stop: 10/28/18 22:04 Last Admin: 10/28/18 15:16 Dose: 75 mls/hr Magnesium Sulfate 2 gm/ Premix 50 mls @ 50 mls/hr IV ONETIME ONE Stop: 10/30/18 13:35 Last Admin: 10/30/18 13:17 Dose: 50 mls/hr Oxycodone HCl (Oxycodone) 5 mg PO Q6H PRN PRN Reason: Pain Last Admin: 10/28/18 07:42 Dose: 5 mg Oxycodone HCl (Oxycodone) 5 mg PO ONETIME ONE Stop: 10/28/18 09:00 Last Admin: 10/28/18 09:13 Dose: 5 mg - Problem List & Annotations (1) Physical deconditioning SNOMED Code(s): 22530204966674 Code(s): R53.81 - OTHER MALAISE Status: Chronic Priority: High Current Visit: Yes (2) Hyperglycemia SNOMED Code(s): 34650259 Code(s): R73.9 - HYPERGLYCEMIA, UNSPECIFIED Status: Chronic Priority: High Current Visit: Yes (3) New onset type 2 diabetes mellitus SNOMED Code(s): 60028172 Code(s): E11.9 - TYPE 2 DIABETES MELLITUS WITHOUT COMPLICATIONS Status: Chronic Priority: High Current Visit: Yes (4) Symptomatic anemia SNOMED Code(s): 960096679 Code(s): D64.9 - ANEMIA, UNSPECIFIED Status: Acute Priority: High Current Visit: Yes (5) Fall SNOMED Code(s): 0636544, 737795327 Code(s): W19.XXXA - UNSPECIFIED FALL, INITIAL ENCOUNTER Status: Acute Priority: High Current Visit: Yes Qualifiers: Encounter type: initial encounter Qualified Code(s): W19.XXXA - Unspecified fall, initial encounter
[2018-10-30] MEDS ORDERED: diphenhydrAMINE/Zinc Acetate 1% Crm 28.3 GM Tube TOP PRN (09:24)
[2018-10-30] MEDS: Gabapentin 100 MG Cap PO SCH ×2 (09:24→20:12)
[2018-10-30] MEDS: Potassium Chloride 10 MEQ Tab.ER PO SCH (09:24)
[2018-10-30] MEDS: Spironolactone 25 MG Tab PO SCH (09:24)
[2018-10-30] MEDS: Latanoprost 0.005% Ophth Soln 2.5 ML Bottle EYELF SCH (09:25)
[2018-10-30] MEDS: Levofloxacin/Dextrose 5%-Water 750 MG in Premix Bag 1 BAG IV SCH (11:02)
[2018-10-30] MEDS ORDERED: Magnesium Sulfate/Water 2 GM in Premix Bag 1 BAG IV ONE (12:36)
[2018-10-30] MEDS: Rivaroxaban 10 MG Tab PO SCH (17:21)
[2018-10-30] MEDS: amLODIPine 5 MG Tab PO SCH (20:12)
[2018-10-30] MEDS: Latanoprost 0.005% Ophth Soln 2.5 ML Bottle EYEBOTH SCH (20:14)
[2018-10-30] MEDS: Temazepam 15 MG Cap PO PRN (20:30)
[2018-10-31 06:19] LABS: CHLORIDE,CL 98 mmol/L (98-107); SODIUM,NA 132 mmol/L (136-145)
[2018-10-31] MEDS: Gabapentin 100 MG Cap PO SCH ×2 (08:08→20:05)
[2018-10-31] MEDS: Spironolactone 25 MG Tab PO SCH (08:08)
[2018-10-31] MEDS: Potassium Chloride 10 MEQ Tab.ER PO SCH (08:08)
[2018-10-31] MEDS: Latanoprost 0.005% Ophth Soln 2.5 ML Bottle EYELF SCH (08:08)
[2018-10-31] MEDS: oxyCODONE 5 MG Tab PO PRN ×3 (08:34→16:40)
--- NOTE | 2018-10-31 09:07 | PCM.PN ---
- General Info Date of Service: 10/31/18 Admission Dx/Problem (Free Text): Falls, weakness, anemia Subjective Update: Feeling ok this morning, no fevers. no cough. L leg continues to hurt. No worsening in swelling. no redness. Daughter ready for her to go to [place] Functional Status: Reports: Pain Controlled, Tolerating Diet, Urinating - Review of Systems General: Reports: Weakness (generalized) HEENT: Reports: No Symptoms. Denies: Headaches, Visual Changes Pulmonary: Reports: No Symptoms. Denies: Shortness of Breath, Cough, Sputum Cardiovascular: Reports: No Symptoms. Denies: Chest Pain, Palpitations, Edema Gastrointestinal: Reports: No Symptoms. Denies: Abdominal Pain, Nausea, Vomiting Genitourinary: Reports: No Symptoms. Denies: Dysuria, Frequency, Burning Musculoskeletal: Reports: Leg Pain Skin: Reports: No Symptoms Neurological: Reports: No Symptoms Psychiatric: Reports: No Symptoms - Patient Data Vitals - Most Recent: Last Vital Signs Temp 98.0 F 10/31/18 07:33 Pulse 109 H 10/31/18 07:33 Resp 19 10/31/18 07:33 BP 131/61 10/31/18 07:33 Pulse Ox 91 L 10/31/18 07:33 Weight - Most Recent: 59.285 kg I&O - Last 24 Hours: Intake & Output 10/30/18 10/31/18 10/31/18 22:59 06:59 14:59 Intake Total 390 500 Output Total 200 750 Balance 190 -250 Lab Results Last 24 Hours: Laboratory Results - last 24 hr 10/30/18 10/31/18 10/31/18 Range/Units 08:08 00:26 05:55 WBC 16.46 H (4.0-11.0) K/uL RBC 3.14 L (4.30-5.90) M/uL Hgb 8.1 L (12.0-16.0) g/dL Hct 26.0 L (36.0-46.0) % MCV 82.8 (80.0-98.0) fL MCH 25.8 L (27.0-32.0) pg MCHC 31.2 (31.0-37.0) g/dL RDW Std Deviation 49.5 (28.0-62.0) fl RDW Coeff of Anne 17 H (11.0-15.0) % Plt Count 205 (150-400) K/uL MPV 8.70 (7.40-12.00) fL Add Manual Diff YES Neutrophils % (Manual) 82 H (48.0-80.0) % Band Neutrophils % 2 % Lymphocytes % (Manual) 12 L (16.0-40.0) % Monocytes % (Manual) 4 (0.0-15.0) % Nucleated RBC % 0.0 /100WBC Absolute Seg Neuts 13.5 H (1.4-5.7) Band Neutrophils # 0.3 Lymphocytes # (Manual) 2.0 (0.6-2.4) Monocytes # (Manual) 0.7 (0.0-0.8) Absolute Myelocytes 0.2 Nucleated RBCs # 0 K/uL Sodium (136-145) mmol/L Potassium (3.5-5.1) mmol/L Chloride (98-107) mmol/L Carbon Dioxide (21.0-32.0) mmol/L BUN (7.0-18.0) mg/dL Creatinine (0.6-1.0) mg/dL Est Cr Clr Drug Dosing mL/min Estimated GFR (MDRD) ml/min Glucose (74-106) mg/dL Calcium (8.5-10.1) mg/dL Magnesium 1.7 L (1.8-2.4) mg/dL Vancomycin Trough 9.6 (5.0-10.0) ug/mL 10/31/18 10/31/18 Range/Units 05:55 05:55 WBC (4.0-11.0) K/uL RBC (4.30-5.90) M/uL Hgb (12.0-16.0) g/dL Hct (36.0-46.0) % MCV (80.0-98.0) fL MCH (27.0-32.0) pg MCHC (31.0-37.0) g/dL RDW Std Deviation (28.0-62.0) fl RDW Coeff of Anne (11.0-15.0) % Plt Count (150-400) K/uL MPV (7.40-12.00) fL Add Manual Diff Neutrophils % (Manual) (48.0-80.0) % Band Neutrophils % % Lymphocytes % (Manual) (16.0-40.0) % Monocytes % (Manual) (0.0-15.0) % Nucleated RBC % /100WBC Absolute Seg Neuts (1.4-5.7) Band Neutrophils # Lymphocytes # (Manual) (0.6-2.4) Monocytes # (Manual) (0.0-0.8) Absolute Myelocytes Nucleated RBCs # K/uL Sodium 132 L (136-145) mmol/L Potassium 4.2 (3.5-5.1) mmol/L Chloride 98 (98-107) mmol/L Carbon Dioxide 28.2 (21.0-32.0) mmol/L BUN 15 (7.0-18.0) mg/dL Creatinine 0.6 (0.6-1.0) mg/dL Est Cr Clr Drug Dosing 59.44 mL/min Estimated GFR (MDRD) > 60.0 ml/min Glucose 183 H (74-106) mg/dL Calcium 8.6 (8.5-10.1) mg/dL Magnesium 2.2 (1.8-2.4) mg/dL Vancomycin Trough (5.0-10.0) ug/mL Johnny Results Last 24 Hours: Microbiology 10/29/18 08:39 Aerobic Blood Culture - Preliminary Blood - Venous NO GROWTH AFTER 2 DAYS Anaerobic Blood Culture - Preliminary NO GROWTH AFTER 2 DAYS 10/29/18 08:39 Aerobic Blood Culture - Preliminary Blood - Venous - Lab Draw NO GROWTH AFTER 2 DAYS Anaerobic Blood Culture - Preliminary NO GROWTH AFTER 2 DAYS 10/29/18 08:18 Urine Culture - Final Urine, Quick Cath (In-Out) No Growth Med Orders - Current: Current Medications Acetaminophen (Tylenol) 650 mg PO Q6H PRN PRN Reason: Pain Last Admin: 10/30/18 20:13 Dose: 650 mg Amlodipine Besylate (Norvasc) 5 mg PO BEDTIME [facility] Last Admin: 10/30/18 20:12 Dose: 5 mg Gabapentin (Neurontin) 100 mg PO BID [facility] Last Admin: 10/31/18 08:08 Dose: 100 mg Sodium Chloride (Normal Saline) 500 mls @ 999 mls/hr IV STAT [facility] Last Admin: 10/26/18 21:02 Dose: 999 mls/hr Levofloxacin/Dextrose 750 mg/ (Premix) 150 mls @ 100 mls/hr IV Q24H [facility] Last Admin: 10/30/18 11:02 Dose: 100 mls/hr Vancomycin HCl 1 gm/ Sodium (Chloride) 250 mls @ 166.667 mls/hr IV Q8H [facility] Last Admin: 10/31/18 08:08 Dose: 166.667 mls/hr Oxycodone HCl (Oxycodone) 5 mg PO Q4H PRN PRN Reason: Pain Last Admin: 10/31/18 08:34 Dose: 5 mg Latanoprost 0.005% Ophth Soln 2.5 Ml Bottle 0 each EYELF DAILY [facility] Last Admin: 10/31/18 08:08 Dose: 1 each Latanoprost 0.005% Ophth Soln 2.5 Ml Bottle 0 each EYEBOTH BEDTIME [facility] Last Admin: 10/30/18 20:14 Dose: 1 each Potassium Chloride (Klor-Con 10) 10 meq PO DAILY [facility] Last Admin: 10/31/18 08:08 Dose: 10 meq Rivaroxaban (Xarelto) 20 mg PO DAILY@1730 [facility] Last Admin: 10/30/18 17:21 Dose: 20 mg Spironolactone (Aldactone) 25 mg PO DAILY [facility] Last Admin: 10/31/18 08:08 Dose: 25 mg Temazepam (Restoril) 15 mg PO BEDTIME PRN PRN Reason: Sleep Last Admin: 10/30/18 20:30 Dose: 15 mg Vancomycin HCl (Pharmacy To Dose - Vancomycin) 1 dose .XX ASDIRECTED [facility] Zinc Acetate/Diphenhydramine (Benadryl Itch Stopping Crm) 0 gm TOP Q4H PRN PRN Reason: itching Discontinued Medications Ceftriaxone Sodium 1 gm/ (Sodium Chloride) 50 mls @ 100 mls/hr IV Q24H [facility] Last Admin: 10/28/18 15:14 Dose: 100 mls/hr Sodium Chloride (Normal Saline) 1,000 mls @ 75 mls/hr IV ASDIRECTED [facility] Stop: 10/28/18 22:04 Last Admin: 10/28/18 15:16 Dose: 75 mls/hr Vancomycin HCl 1 gm/ Sodium (Chloride) 250 mls @ 166.667 mls/hr IV Q12H [facility] Last Admin: 10/31/18 01:18 Dose: Not Given Magnesium Sulfate 2 gm/ Premix 50 mls @ 50 mls/hr IV ONETIME ONE Stop: 10/30/18 13:35 Last Admin: 10/30/18 13:17 Dose: 50 mls/hr Oxycodone HCl (Oxycodone) 5 mg PO Q6H PRN PRN Reason: Pain Last Admin: 10/28/18 07:42 Dose: 5 mg Oxycodone HCl (Oxycodone) 5 mg PO ONETIME ONE Stop: 10/28/18 09:00 Last Admin: 10/28/18 09:13 Dose: 5 mg - Exam General: Alert, Oriented, Cooperative, No Acute Distress Neck: Supple Lungs: Clear to Auscultation, Normal Respiratory Effort Cardiovascular: Regular Rate, Regular Rhythm GI/Abdominal Exam: Normal Bowel Sounds, Soft, Non-Tender Extremities: Pedal Edema (+2 pitting to L foot, edema extending up L leg including thigh to groin.No bruising or cellulitis noted. ) Neurological: No New Focal Deficit Psy/Mental Status: Alert, Normal Affect, Normal Mood - Problem List & Annotations (1) HCAP (healthcare-associated pneumonia) SNOMED Code(s): 057754244 Code(s): J18.9 - PNEUMONIA, UNSPECIFIED ORGANISM Status: Acute Current Visit: Yes (2) UTI (urinary tract infection) SNOMED Code(s): 84062888 Code(s): N39.0 - URINARY TRACT INFECTION, SITE NOT SPECIFIED Status: Acute Current Visit: No Qualifiers: Urinary tract infection type: acute cystitis Hematuria presence: without hematuria Qualified Code(s): N30.00 - Acute cystitis without hematuria (3) Symptomatic anemia SNOMED Code(s): 300642885 Code(s): D64.9 - ANEMIA, UNSPECIFIED Status: Acute Priority: High Current Visit: Yes (4) Fall SNOMED Code(s): 4710377, 690236812 Code(s): W19.XXXA - UNSPECIFIED FALL, INITIAL ENCOUNTER Status: Acute Priority: High Current Visit: Yes Qualifiers: Encounter type: initial encounter Qualified Code(s): W19.XXXA - Unspecified fall, initial encounter (5) Physical deconditioning SNOMED Code(s): 38228174476846 Code(s): R53.81 - OTHER MALAISE Status: Chronic Priority: High Current Visit: Yes (6) Hx of deep venous thrombosis SNOMED Code(s): 564334121 Code(s): Z86.718 - PERSONAL HISTORY OF OTHER VENOUS THROMBOSIS AND EMBOLISM Status: Chronic Current Visit: Yes - Problem List Review Problem List Initiated/Reviewed/Updated: Yes - My Orders Last 24 Hours: My Active Orders 10/30/18 09:24 diphenhydrAMINE/Zinc Acetate [Benadryl Itch Stopping Crm] See Dose Instructions TOP Q4H PRN 10/30/18 09:25 Telemetry Monitoring [Cardiac Monitoring] [RC] Q8H 10/31/18 01:00 Vancomycin [Vancocin] 1 gm Sodium Chloride 0.9% [Normal Saline] 250 ml IV Q8H 11/01/18 05:11 BMP [BASIC METABOLIC PANEL,BMP] [CHEM] AM CBC WITH AUTO DIFF [HEME] AM 11/02/18 05:11 BMP [BASIC METABOLIC PANEL,BMP] [CHEM] AM CBC WITH AUTO DIFF [HEME] AM - Plan Plan:: This 88 year old female admitted with generalized weakness, falls, UTI and symptomatic anemia 1. Symptomatic anemia: Hgb 8.1 Continue Xarelto due to DVT of left leg. Monitor. Will check occult. Transfuse 1 unit today. 2. HCAP: WBC 16,000 still today. No fever. Levaquin and Vancomycin continue. 3. UTI: UC returned with Mixed agustín >100,000. Repeat UC negative. 4. Generalized weakness and falls: PT/OT to evaluate and treat. 5. DVT L Leg: having more. Gabapentin to neuropathy. Continue Oxycodone. Discussed further imaging of Leg with Dr Zeng and daughter. Should would like CT, this may help in treatment plan course. Abscess or hematoma or edema? VTE prophylaxis: Xarelto Dispo; Likely discharge in am to [facility] bed
[2018-10-31] MEDS: Levofloxacin/Dextrose 5%-Water 750 MG in Premix Bag 1 BAG IV SCH (11:04)
[2018-10-31] MEDS ORDERED: Iopamidol 755 MG/ML 500 ML Multipack Bottle IVPUSH ONE (12:43)
[2018-10-31] MEDS: Acetaminophen 325 MG Tab PO PRN (13:03)
[2018-10-31] MEDS: Rivaroxaban 10 MG Tab PO SCH (16:38)
--- NOTE | 2018-10-31 16:50 | CT ---
EXAMINATION: CT left lower leg with contrast HISTORY: Pain COMPARISON: 10/29/2018 TECHNIQUE: Axial CT imaging obtained through the left lower extremity following the administration of 100 mL of Isovue-370 in the left breast. Coronal and sagittal reconstructions obtained. FINDINGS: There is a large partially visualized peripherally and heterogeneously enhancing mass extending from the hamstring region of the thigh inferiorly into the calf. This appears to follow the venous structures inferiorly into the calf. The deep venous system is not well identified, and likely occluded by the heterogeneous mass. There is a small suprapatellar joint effusion. There is no definite bony erosion. Superficial venous varicosities are noted within the lower extremity. The previously demonstrated collection on ultrasound likely represents a necrotic component of the mass. Moderate skin thickening along the posterior aspect of the leg. The mid to distal Achilles tendon is thickened. No acute osseous abnormality identified. IMPRESSION: 1. Large heterogeneous mass extending from the lower thigh posteriorly and to the upper calf. 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 2. Obliteration of the deep venous system secondary to invasion and obliteration by the mass. 3. There is resultant superficial varicosities noted. 4. Small suprapatellar joint effusion. 5. Moderate Achilles tendinopathy.
[2018-10-31] MEDS: amLODIPine 5 MG Tab PO SCH (20:05)
[2018-10-31] MEDS: HYDROmorphone 1 MG/ML Syringe IVPUSH PRN (20:06)
[2018-10-31] MEDS: Latanoprost 0.005% Ophth Soln 2.5 ML Bottle EYEBOTH SCH (20:06)
[2018-11-01] MEDS: oxyCODONE 5 MG Tab PO PRN (01:25)
[2018-11-01 05:59] LABS: CHLORIDE,CL 100 mmol/L (98-107); SODIUM,NA 132 mmol/L (136-145)
[2018-11-01] MEDS: HYDROmorphone 1 MG/ML Syringe IVPUSH PRN ×2 (06:00→12:25)
[2018-11-01 07:30] VITALS: BP 121/55
[2018-11-01] MEDS ORDERED: HYDROmorphone 2 MG Tab PO PRN (08:24)
[2018-11-01] MEDS: Spironolactone 25 MG Tab PO SCH (08:48)
[2018-11-01] MEDS: Potassium Chloride 10 MEQ Tab.ER PO SCH (08:49)
[2018-11-01] MEDS: Gabapentin 100 MG Cap PO SCH (08:50)
[2018-11-01] MEDS: Latanoprost 0.005% Ophth Soln 2.5 ML Bottle EYELF SCH (08:56)
--- NOTE | 2018-11-01 10:41 | PCM.DCSUM1 ---
Discharge Summary - Hospital Course Brief History: This an 88 rama old female with pmh of HTN and DVT diagnosed 3 mo ago to [facility], who presented to ED secondary to increasing confusion, falls and generalized weakness. The patient's daughter was with her. The patient's daughter says that the patient is scheduled to go to an assisted living center later this week. The patient says that she has been coming increasingly weak and fatigued and she has severe pain in her left foot and calf. The patient was recently started on Xarelto for blood clots in her left lower extremity. Patient has denied any trauma. The patient has denied any fever or chills. She' s had no shortness of breath. She has been living at home and has been unable to meet her activities of daily living. Diagnosis: Stroke: No - Discharge Data Discharge Date: 11/01/18 Discharge Disposition: DC/Tfer W/I Hosp To [facility] Condition: Fair - Discharge Diagnosis/Problem(s) (1) HCAP (healthcare-associated pneumonia) SNOMED Code(s): 406547873 ICD Code: J18.9 - PNEUMONIA, UNSPECIFIED ORGANISM Status: Acute Current Visit: Yes (2) UTI (urinary tract infection) SNOMED Code(s): 94824853 ICD Code: N39.0 - URINARY TRACT INFECTION, SITE NOT SPECIFIED Status: Acute Current Visit: No Qualifiers: Urinary tract infection type: acute cystitis Hematuria presence: without hematuria Qualified Code(s): N30.00 - Acute cystitis without hematuria (3) Symptomatic anemia SNOMED Code(s): 973093970 ICD Code: D64.9 - ANEMIA, UNSPECIFIED Status: Acute Priority: High Current Visit: Yes (4) Fall SNOMED Code(s): 3742599, 863513455 ICD Code: W19.XXXA - UNSPECIFIED FALL, INITIAL ENCOUNTER Status: Acute Priority: High Current Visit: Yes Qualifiers: Encounter type: initial encounter Qualified Code(s): W19.XXXA - Unspecified fall, initial encounter (5) Physical deconditioning SNOMED Code(s): 19214415585335 ICD Code: R53.81 - OTHER MALAISE Status: Chronic Priority: High Current Visit: Yes (6) Hx of deep venous thrombosis SNOMED Code(s): 672074575 ICD Code: Z86.718 - PERSONAL HISTORY OF OTHER VENOUS THROMBOSIS AND EMBOLISM Status: Chronic Current Visit: Yes - Patient Summary/Data Consults: Consultations 10/27/18 08:49 OT Evaluation and Treatment [CONS] Routine PT Evaluation and Treatment [CONS] Routine - Patient Instructions Diet: Regular Diet as Tolerated Activity: As Tolerated Showering/Bathing: May Shower Notify Provider of: Fever, Increased Pain, Swelling and Redness, Drainage, Nausea and/or Vomiting Other/Special Instructions: PT/OT to evaluate and treat - Discharge Plan *PRESCRIPTION DRUG MONITORING PROGRAM REVIEWED*: Not Applicable *COPY OF PRESCRIPTION DRUG MONITORING REPORT IN PATIENT JERALD: Not Applicable Prescriptions/Med Rec: Gabapentin [Neurontin] 100 mg PO BID #30 capsule HYDROmorphone [Dilaudid] 2 mg PO Q4H PRN #10 tablet PRN Reason: Pain Levofloxacin 750 mg PO DAILY #3 tablet Home Medications: Home Meds Latanoprost [Xalatan 0.005% Ophth Soln] 1 drop EYEBOTH BEDTIME 02/04/15 [History ] Rivaroxaban [Xarelto] 20 mg PO DAILY 08/14/18 [History] amLODIPine Besylate [Amlodipine Besylate] 5 mg PO BEDTIME 09/14/18 [History] Dorzolamide HCl 1 drop EYELF DAILY 10/26/18 [History] Doxazosin Mesylate [Cardura] 1 mg PO DAILY 10/26/18 [History] Potassium Chloride [Klor-Con 10] 10 meq PO DAILY 10/26/18 [History] Spironolactone [Aldactone] 25 mg PO DAILY 10/26/18 [History] Gabapentin [Neurontin] 100 mg PO BID #30 capsule 11/01/18 [Rx] HYDROmorphone [Dilaudid] 2 mg PO Q4H PRN #10 tablet 11/01/18 [Rx] Levofloxacin 750 mg PO DAILY #3 tablet 11/01/18 [Rx] Patient Handouts: Gabapentin capsules or tablets, Levofloxacin tablets, Hydromorphone tablets, Deep Vein Thrombosis - Discharge Summary/Plan Comment DC Time >30 min.: Yes (Awaiting call from provider in [place] and transfer) Discharge Summary/Plan Comment: Discharge Diagnoses: 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 She was treated initially for UTI with Rocephin. Leukocytosis remained elevated at 13-14,000. She did have a fever, BC CXR and repeat UA were obtained. CXR revealed possible infiltrate. Antibiotics were started for HCAP, Levaquin and Vancomycin. Fevers have cleared. BC negative and UA/UC engative as well. She continued to have significant pain to [facility], CT with contrast was obtained which revealed "large heterogenous mass extending from the lower thigh posteriorly and to the upper calf, likely representing a malignant process such as a sarcome. Obliteration of the deep venous system secondary to invasion and obliteration by the mass, superficial varicosities noted. Kayley and family were notified of these findings. They still would like to go to [facility] at this time and try some physical therapy and pain control. Kayley at this time wants NO further testing or procedures for this mass. We will continue all home medications, along with Levaquin for 3 more days, Gabapentin for neuropathy and Dilaudid PO for pain control. I spoke with SAMMY Morin at [facility], who has accepted her at this time. She will be leaving by EMS due to the pain it causes to get into a chair and vehicle for a long travel. Social work will notify nursing of estimated time of arrival. - General Info Date of Service: 11/01/18 Admission Dx/Problem (Free Text: Falls, weakness, anemia Subjective Update: Pain is fairly well controlled this morning. NO chest pain or SOB. Eager to get to [place]. Functional Status: Reports: Pain Controlled, Tolerating Diet, Urinating. Denies : Ambulating - Review of Systems General: Reports: Weakness (generalized), Fatigue. Denies: Fever HEENT: Reports: No Symptoms. Denies: Sinus Congestion, Visual Changes Pulmonary: Reports: No Symptoms. Denies: Shortness of Breath Cardiovascular: Reports: No Symptoms. Denies: Chest Pain Gastrointestinal: Reports: No Symptoms. Denies: Abdominal Pain, Decreased Appetite Genitourinary: Reports: No Symptoms. Denies: Dysuria, Frequency, Burning Musculoskeletal: Reports: Leg Pain (Left ) Skin: Reports: No Symptoms Neurological: Reports: No Symptoms Psychiatric: Reports: No Symptoms - Patient Data Vitals - Most Recent: Last Vital Signs Temp 98.1 F 11/01/18 07:29 Pulse 112 H 11/01/18 07:29 Resp 18 11/01/18 07:29 BP 121/55 L 11/01/18 07:29 Pulse Ox 92 L 11/01/18 08:00 Weight - Most Recent: 59.285 kg I&O - Last 24 hours: Intake & Output 10/31/18 11/01/18 11/01/18 22:59 06:59 14:59 Intake Total 1101 1250 Output Total 800 900 Balance 301 350 Lab Results - Last 24 hrs: Laboratory Results - last 24 hr 10/31/18 11/01/18 11/01/18 Range/Units 10:40 05:00 05:00 WBC 17.43 H (4.0-11.0) K/uL RBC 3.31 L (4.30-5.90) M/uL Hgb 8.8 L (12.0-16.0) g/dL Hct 27.8 L (36.0-46.0) % MCV 84.0 (80.0-98.0) fL MCH 26.6 L (27.0-32.0) pg MCHC 31.7 (31.0-37.0) g/dL RDW Std Deviation 49.9 (28.0-62.0) fl RDW Coeff of Anne 17 H (11.0-15.0) % Plt Count 221 (150-400) K/uL MPV 8.70 (7.40-12.00) fL Add Manual Diff YES Neutrophils % (Manual) 80 (48.0-80.0) % Band Neutrophils % 3 % Lymphocytes % (Manual) 29 (16.0-40.0) % Monocytes % (Manual) 7 (0.0-15.0) % Eosinophils % (Manual) 1 (0.0-7.0) % Nucleated RBC % 0.0 /100WBC Absolute Seg Neuts 13.9 H (1.4-5.7) Band Neutrophils # 0.5 Lymphocytes # (Manual) 5.1 H (0.6-2.4) Monocytes # (Manual) 1.2 H (0.0-0.8) Eosinophils # (Manual) 0.2 (0.0-0.7) Nucleated RBCs # 0 K/uL Sodium 132 L (136-145) mmol/L Potassium 4.3 (3.5-5.1) mmol/L Chloride 100 (98-107) mmol/L Carbon Dioxide 26.3 (21.0-32.0) mmol/L BUN 20 H (7.0-18.0) mg/dL Creatinine 0.7 (0.6-1.0) mg/dL Est Cr Clr Drug Dosing 50.95 mL/min Estimated GFR (MDRD) > 60.0 ml/min Glucose 192 H (74-106) mg/dL Calcium 8.6 (8.5-10.1) mg/dL Vancomycin Trough (5.0-10.0) ug/mL Blood Type A POSITIVE Antibody Screen NEGATIVE Crossmatch See Detail 11/01/18 Range/Units 08:47 WBC (4.0-11.0) K/uL RBC (4.30-5.90) M/uL Hgb (12.0-16.0) g/dL Hct (36.0-46.0) % MCV (80.0-98.0) fL MCH (27.0-32.0) pg MCHC (31.0-37.0) g/dL RDW Std Deviation (28.0-62.0) fl RDW Coeff of Anne (11.0-15.0) % Plt Count (150-400) K/uL MPV (7.40-12.00) fL Add Manual Diff Neutrophils % (Manual) (48.0-80.0) % Band Neutrophils % % Lymphocytes % (Manual) (16.0-40.0) % Monocytes % (Manual) (0.0-15.0) % Eosinophils % (Manual) (0.0-7.0) % Nucleated RBC % /100WBC Absolute Seg Neuts (1.4-5.7) Band Neutrophils # Lymphocytes # (Manual) (0.6-2.4) Monocytes # (Manual) (0.0-0.8) Eosinophils # (Manual) (0.0-0.7) Nucleated RBCs # K/uL Sodium (136-145) mmol/L Potassium (3.5-5.1) mmol/L Chloride (98-107) mmol/L Carbon Dioxide (21.0-32.0) mmol/L BUN (7.0-18.0) mg/dL Creatinine (0.6-1.0) mg/dL Est Cr Clr Drug Dosing mL/min Estimated GFR (MDRD) ml/min Glucose (74-106) mg/dL Calcium (8.5-10.1) mg/dL Vancomycin Trough 16.8 H (5.0-10.0) ug/mL Blood Type Antibody Screen Crossmatch DIAN Results - Last 24 hrs: Microbiology 10/29/18 08:39 Aerobic Blood Culture - Preliminary Blood - Venous - Lab Draw NO GROWTH AFTER 3 DAYS Anaerobic Blood Culture - Preliminary NO GROWTH AFTER 3 DAYS 10/29/18 08:39 Aerobic Blood Culture - Preliminary Blood - Venous NO GROWTH AFTER 3 DAYS Anaerobic Blood Culture - Preliminary NO GROWTH AFTER 3 DAYS 10/29/18 08:18 Urine Culture - Final Urine, Quick Cath (In-Out) No Growth Med Orders - Current: Current Medications Acetaminophen (Tylenol) 650 mg PO Q6H PRN PRN Reason: Pain Last Admin: 10/31/18 13:03 Dose: 650 mg Amlodipine Besylate (Norvasc) 5 mg PO BEDTIME [facility] Last Admin: 10/31/18 20:05 Dose: 5 mg Gabapentin (Neurontin) 100 mg PO BID [facility] Last Admin: 11/01/18 08:50 Dose: 100 mg Hydromorphone HCl (Dilaudid) 1 mg IVPUSH Q4H PRN PRN Reason: Pain Last Admin: 11/01/18 06:00 Dose: 1 mg Hydromorphone HCl (Dilaudid) 2 mg PO Q4H PRN PRN Reason: Pain Sodium Chloride (Normal Saline) 500 mls @ 999 mls/hr IV STAT [facility] Last Admin: 10/26/18 21:02 Dose: 999 mls/hr Levofloxacin/Dextrose 750 mg/ (Premix) 150 mls @ 100 mls/hr IV Q24H [facility] Last Admin: 10/31/18 11:04 Dose: 100 mls/hr Vancomycin HCl 1 gm/ Sodium (Chloride) 250 mls @ 166.667 mls/hr IV Q8H [facility] Last Admin: 11/01/18 09:30 Dose: 166.667 mls/hr Latanoprost 0.005% Ophth Soln 2.5 Ml Bottle 0 each EYELF DAILY [facility] Last Admin: 11/01/18 08:56 Dose: 1 each Latanoprost 0.005% Ophth Soln 2.5 Ml Bottle 0 each EYEBOTH BEDTIME [facility] Last Admin: 10/31/18 20:06 Dose: 1 each Potassium Chloride (Klor-Con 10) 10 meq PO DAILY [facility] Last Admin: 11/01/18 08:49 Dose: 10 meq Rivaroxaban (Xarelto) 20 mg PO DAILY@1730 [facility] Last Admin: 10/31/18 16:38 Dose: 20 mg Spironolactone (Aldactone) 25 mg PO DAILY [facility] Last Admin: 11/01/18 08:48 Dose: 25 mg Temazepam (Restoril) 15 mg PO BEDTIME PRN PRN Reason: Sleep Last Admin: 10/30/18 20:30 Dose: 15 mg Vancomycin HCl (Pharmacy To Dose - Vancomycin) 1 dose .XX ASDIRECTED [facility] Zinc Acetate/Diphenhydramine (Benadryl Itch Stopping Crm) 0 gm TOP Q4H PRN PRN Reason: itching Discontinued Medications Ceftriaxone Sodium 1 gm/ (Sodium Chloride) 50 mls @ 100 mls/hr IV Q24H [facility] Last Admin: 10/28/18 15:14 Dose: 100 mls/hr Sodium Chloride (Normal Saline) 1,000 mls @ 75 mls/hr IV ASDIRECTED [facility] Stop: 10/28/18 22:04 Last Admin: 10/28/18 15:16 Dose: 75 mls/hr Vancomycin HCl 1 gm/ Sodium (Chloride) 250 mls @ 166.667 mls/hr IV Q12H [facility] Last Admin: 10/31/18 01:18 Dose: Not Given Magnesium Sulfate 2 gm/ Premix 50 mls @ 50 mls/hr IV ONETIME ONE Stop: 10/30/18 13:35 Last Admin: 10/30/18 13:17 Dose: 50 mls/hr Iopamidol (Isovue Multipack-370 (76%)) 100 ml IVPUSH ONETIME ONE Stop: 10/31/18 12:44 Last Admin: 10/31/18 12:43 Dose: 100 ml Oxycodone HCl (Oxycodone) 5 mg PO Q6H PRN PRN Reason: Pain Last Admin: 10/28/18 07:42 Dose: 5 mg Oxycodone HCl (Oxycodone) 5 mg PO Q4H PRN PRN Reason: Pain Last Admin: 11/01/18 01:25 Dose: 5 mg Oxycodone HCl (Oxycodone) 5 mg PO ONETIME ONE Stop: 10/28/18 09:00 Last Admin: 10/28/18 09:13 Dose: 5 mg - Exam Quality Assessment: Reports: DVT Prophylaxis. Denies: Supplemental Oxygen General: Reports: Alert, Oriented, Cooperative Lungs: Reports: Clear to Auscultation, Normal Respiratory Effort Cardiovascular: Reports: Regular Rate, Regular Rhythm GI/Abdominal Exam: Normal Bowel Sounds, Soft, Non-Tender, No Mass Back Exam: Reports: Full Range of Motion, CVA Tenderness (R) Extremities: Pedal Edema (+2 pitting edema to L lower leg. Firmness to L thigh with varicose veins noted. ) Skin: Reports: Warm, Dry Neurological: Reports: No New Focal Deficit Psy/Mental Status: Reports: Alert, Normal Affect, Normal Mood *Q Meaningful Use (DIS) - VTE *Q VTE Mechanical Contraindications *Q: Bilateral PAD or PVD VTE Pharmacological Contraindications *Q: Not Candidate LT Anticoag
[2018-11-01] MEDS: Levofloxacin/Dextrose 5%-Water 750 MG in Premix Bag 1 BAG IV SCH (11:51)
== END 2018-11-01 12:45 | disposition swing bed (61) | DRG 689 ==
LOC: MW.ED 20:12 → MW.MS 21:21 → OBSVTOIN 10-29 11:13
PROVIDERS: ADMIT Internal Medicine; ATTEND Internal Medicine
DX: N30.00 Acute cystitis without hematuria (principal); J18.9 Pneumonia, unspecified organism; H40.9 Unspecified glaucoma; H35.30 Unspecified macular degeneration; D64.9 Anemia, unspecified; F41.9 Anxiety disorder, unspecified; C76.52 Malignant neoplasm of left lower limb; R53.81 Other malaise; R29.6 Repeated falls; M79.662 Pain in left lower leg; R22.42 Localized swelling, mass and lump, left lower limb; I10 Essential (primary) hypertension; M25.572 Pain in left ankle and joints of left foot; E11.65 Type 2 diabetes mellitus with hyperglycemia; Z86.718 Personal history of other venous thrombosis and embolism; Z79.01 Long term (current) use of anticoagulants; Z88.8 Allergy status to other drugs, medicaments and biological substances; Z79.899 Other long term (current) drug therapy
CPT/HCPCS: 36415 ×4; 70450; 71045 ×2; 73610; 80048 ×2; 80053 ×2; 81001 ×2; 83735 ×2; 84100; 84484; 85025 ×4; 85610; 87040 ×2; 87086 ×2; 93005; 93971; 96361; 96365; 96366; 97110; 97161; 97165; 97530; 99285; A9270 ×31; G0378 ×3; J0696 ×2; J7040 ×2; J7050 ×2; P9016 ×2; 36430; 73701-26-LT; 73701-LT; 80202; 86850; 86900; 86901; 86920; 86921; 86922; 99284; J1170; J1956; J3370; J3475; Q9967